=== PATIENT | male | born 1945 | race Caucasian/White ===

== ENCOUNTER 2018-11-01 19:06 | Inpatient (IN) | payer MEDICARE ==
--- NOTE | 2018-11-01 19:53 | ED ---
HPI Chest Pain - HPI Summary HPI Summary: Pt is a 73 y/o M presenting to the ED with a chief complaint of chest pain onset this morning that lasted about 3 hours. He took 2.5mg of clonazepam which calmed him down and he went to work and came home around 1800 and had another episode. Pt ate half a tuna fish sub that he ate very quickly. Pt has a hx of an IA over 5 years ago but he states he has episodes where he feels like he needs to burp but he cant. Upon burping, he usually feels better. Altogether, hes had 7.5 mg of clonazepam today. At its peak, the pain was ~7, but now it is a 4. Pt denies nausea, vomiting, sob, and diaphoresis. Pt reports the chest pain in the lower center of chest. - History of Current Complaint Chief Complaint: EDChestPainROMI Time Seen by Provider: 11/01/18 19:38 Hx Obtained From: Patient Onset/Duration: Started Hours Ago, Still Present Timing: Constant Initial Severity: Moderate Current Severity: Mild Pain Intensity: 7 Pain Scale Used: 0-10 Numeric Chest Pain Location: Diffuse Chest Pain Radiates: No Character: Other: - like something is stuck in his esophagus Aggravating Factor(s): Other: - eating Alleviating Factor(s): Nothing Associated Signs and Symptoms: Positive: Chest Pain. Negative: Diaphoresis, Nausea, Vomiting - Additional Pertinent History Primary Care Physician: [id number] - Allergy/Home Medications Allergies/Adverse Reactions: Allergies Allergy/AdvReac Type Severity Reaction Status Date / Time MS No Known Drug Allergy Allergy Unknown Verified 11/01/18 22:25 [No Known Drug Allergy] Reaction Details environmental Allergy Sneezing Uncoded 11/01/18 22:25 Home Medications: Home Medications Eliquis* 5 mg PO DAILY 11/01/18 [History Confirmed 11/01/18] Flecainide TAB(NF) 50 mg PO DAILY 11/01/18 [History Confirmed 11/01/18] clonazePAM TAB(*) 0.5 mg PO DAILY PRN 11/01/18 [History Confirmed 11/01/18] PMH/Surg Hx/FS Hx/Imm Hx Previously Healthy: No Endocrine/Hematology History: Denies: Hx Diabetes, Hx Systemic Lupus Erythematosus, Hx Thyroid Disease Cardiovascular History: Reports: Hx Angina - catheterization several years ago, no significant blockage, Hx Coronary Artery Disease, Hx Hypercholesterolemia, Hx Hypertension, Hx Myocardial Infarction, Other Cardiovascular Problems/ Disorders - DVT R arm Denies: Hx Congestive Heart Failure, Hx Valvular Heart Disease Respiratory History: Denies: Hx Asthma, Hx Chronic Obstructive Pulmonary Disease (COPD) GI History: Reports: Hx Gastroesophageal Reflux Disease, Other GI Disorders - neck ca, PEG tube Denies: Hx Ulcer History: Reports: Hx Renal Disease - abnormal gfr Denies: Hx Dialysis Musculoskeletal History: Denies: Hx Rheumatoid Arthritis Sensory History: Reports: Hx Contacts or Glasses Opthamlomology History: Reports: Hx Contacts or Glasses - Cancer History Cancer Type, 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 Infectious Disease History: No Infectious Disease History: Denies: Hx Clostridium Difficile, Hx Hepatitis, Hx Human Immunodeficiency Virus (HIV), Hx of Known/Suspected MRSA, Hx Shingles, Hx Tuberculosis, Hx Known/ Suspected VRE, Hx Known/Suspected VRSA, History Other Infectious Disease, Traveled Outside the [place] in Last 30 Days - Family History Known Family History: Negative: Renal Disease - Social History Alcohol Use: None Substance Use Type: Reports: None Smoking Status (MU): Never Smoked Tobacco Review of Systems Negative: Fever, Chills, Skin Diaphoresis Positive: Chest Pain Negative: Shortness Of Breath Negative: Vomiting, Diarrhea, Nausea All Other Systems Reviewed And Are Negative: Yes Physical Exam - Summary Physical Exam Summary: Appearance: Well-appearing, Well-nourished, lying in bed comfortably Skin: Warm, dry, no obvious rash Eyes: sclera anicteric, no conjunctival pallor ENT: mucous membranes moist, pharynx appears normal Neck: Supple, nontender Respiratory: Clear to auscultation, no signs of respiratory distress Cardiovascular: Normal S1, S2. No murmurs. Normal distal pulses in tibial and radial bilaterally. Abdomen: Soft, nontender, normal active bowel sounds present Musculoskeletal: Normal, Strength/ROM Intact Neurological: A&Ox3, awake and alert, mentation is normal, speech is fluent and appropriate Psychiatric: affect is normal, does not appear anxious or depressed Triage Information Reviewed: Yes Vital Signs On Initial Exam: Initial Vitals Temp Pulse Resp BP Pulse Ox 97.8 F 88 16 165/101 98 11/01/18 19:10 11/01/18 19:10 11/01/18 19:10 11/01/18 19:10 11/01/18 19:10 Vital Signs Reviewed: Yes Diagnostics - Vital Signs Vital Signs Temp Pulse Resp BP Pulse Ox 11/01/18 19:10 97.8 F 88 16 165/101 98 - Laboratory Result Diagrams: 11/01/18 19:57 11/01/18 21:55 Lab Statement: Any lab studies that have been ordered have been reviewed, and results considered in the medical decision making process. - Radiology Chest x-ray Radiology Interpretation Completed By: ED Physician Summary of Radiographic Findings: No acute disease. Nodule in R upper chest that appears to have been present on 2015 prior film. Pending official radiology report. - EKG 1918 Cardiac Rate: NL - 85bpm EKG Rhythm: Sinus Rhythm ST Segment: Normal Ectopy: None Summary of EKG Findings: LVH 1958 Cardiac Rate: NL - 80bpm EKG Rhythm: Sinus Rhythm ST Segment: Non-Specific Ectopy: None Summary of EKG Findings: LVH. Mild widening of QRS. No STEMI. Discharge - Sign-Out/Discharge Documenting (check all that apply): Patient Departure - Discharge Plan Condition: Stable Disposition: ADMITTED TO [facility] Referrals: Dean Jacobson MD [Primary Care Provider] - - Attestation Statements Document Initiated by Scribe: Yes Documenting Scribe: Hillary Miramontes Provider For Whom Scribe is Documenting (Include Credential): Jean Sigala MD. Scribe Attestation: Hillary Zafar, scribed for Jean Sigala MD. on 11/01/18 at 2313. Consult Consult: [id number] - Dr. Andersen will be the accepting physician for the patient.
[2018-11-01] MEDS ORDERED: Lidocaine 2% VISCOUS* 15 ML UDC PO ONE (19:57)
[2018-11-01] MEDS ORDERED: Al Hydrox/Mg Hydrox/Simet LIQ* 30 ML UDC PO ONE (19:57)
[2018-11-01] MEDS ORDERED: SIMETHICONE PO ONE (19:57)
[2018-11-01 20:39] LABS: ABS Basophils 0 10^3/ul (0-0.2); ABS Eosinophils 0.1 10^3/ul (0-0.6); ABS Lymphocytes 0.7 10^3/ul (1.0-4.8); ABS Monocytes 0.4 10^3/ul (0-0.8); ABS Nucleated RBC 0 10^3/ul; Eosinophil % 1.4 %; Hematocrit 41 % (42-52); Hemoglobin 13.9 g/dl (14.0-18.0); Lymphocyte % 14.1 %; Mean Corpuscular HGB Conc 34 g/dl (31-36); Mean Corpuscular Hemoglobin 31 pg (27-31); Mean Corpuscular Volume 90 fL (80-94); Mean Platelet Volume 8.5 fL (7.4-10.4); Nucleated Red Blood Cells % 0.1; Platelet Count 118 10^3/ul (150-450); Red Blood Count 4.56 10^6/ul (4.00-5.40); Red Cell Distribution Width 14 % (10.5-15); White Blood Count 5.3 10^3/ul (3.5-10.8)
[2018-11-01 20:58] LABS: Albumin 4.1 g/dL (3.2-5.2); Albumin/Globulin Ratio 1.7 (1-3); BUN/Creatinine Ratio 17.2 (8-20); Calcium 9.4 mg/dL (8.6-10.3); EGFR African American 63.2 (>60); EGFR Non-African American 52.3 (>60); Globulin 2.4 g/dL (2-4); Potassium 3.7 mmol/L (3.5-5.0); Total Bilirubin 0.6 mg/dL (0.2-1.0); Total Protein 6.5 g/dL (6.4-8.9)
[2018-11-01 21:05] LABS: Troponin I 0.19 ng/mL (<0.04)
[2018-11-01] MEDS ORDERED: Aspirin TAB* 325 MG PO ONE (21:10)
[2018-11-01] MEDS ORDERED: Morphine VIAL* 10 MG/ML 1 ML VIAL IV PRN (21:11)
[2018-11-01] MEDS ORDERED: Nitro 2% OINT* (Nitroglycerin) 1 INCH/PAK PAK TOPICAL ONE (21:12)
[2018-11-01] MEDS ORDERED: Heparin DRIP 25,000 UNITS(*) 25,000 UNITS/500 ML BAG IV SCH (21:30)
[2018-11-01] MEDS ORDERED: Heparin VIAL(*) 5000 UNITS/ML VIAL (FIVE THOUSAND) ONE (21:42)
[2018-11-01] MEDS ORDERED: Heparin DRIP 25,000 UNITS(*) 25,000 UNITS/500 ML BAG ONE (21:42)
[2018-11-01] MEDS ORDERED: Heparin VIAL(*) 5000 UNITS/ML VIAL (FIVE THOUSAND) IV SCH (22:00)
[2018-11-01 22:56] LABS: EGFR African American 69.1 (>60); EGFR Non-African American 57.1 (>60)
[2018-11-01] MEDS ORDERED: Acetaminophen TAB* 325 MG PO PRN (23:17)
[2018-11-01] MEDS ORDERED: clonazePAM TAB(*) 0.5 MG PO PRN (23:20)
[2018-11-01] MEDS ORDERED: NS 0.9% 1000 ML** 1,000 ML IV SCH (23:30)
[2018-11-02] MEDS ORDERED: Heparin DRIP 25,000 UNITS(*) 25,000 UNITS/500 ML BAG IV SCH
[2018-11-02] MEDS ORDERED: Heparin VIAL(*) 5000 UNITS/ML VIAL (FIVE THOUSAND) IV SCH (00:30)
--- NOTE | 2018-11-02 00:57 | HP ---
CC: Dean Jacobson MD; Orestes Moreno MD * HISTORY AND PHYSICAL: DATE OF ADMISSION: 11/01/18 TIME OF EVALUATION: 2300 PRIMARY CARE PHYSICIAN: Dean Jacobson MD PRODUCT APPLICATIONS ENGINEER: Orestes Moreno MD CHIEF COMPLAINT: Chest pain. HISTORY OF PRESENT ILLNESS: This is a 73-year-old male with a past medical history of CAD and hypertension and paroxysmal AFib, on anticoagulation, who presented to the emergency room after having 2 episodes of persistent chest pain. The patient states since his head and neck cancer, status post chemo and radiation in 2014, he has had issues with digestion where it feels that he needs to burp, but cannot. After taking small sips, it usually helps. This morning, he developed a similar epigastric chest pain. He took some sips of water and a Klonopin and his pain improved. Around 3:30 this afternoon, he ate half a tuna salad and about an hour later the pain returned. The sips of water did not help. He went home, he walked around and the symptoms persisted and he thought that he should go to the emergency room for further evaluation. He works at a [employer] and was outside walking around for most of the day. His furnace no longer works and he was using a space heater as it was very cold today as the temperature was in the single digits. The patient denies any nausea. No shortness of breath. No associated diaphoresis. Denies any recent medication changes. He had a stress test over a year ago that was unremarkable. He states he is slowly gaining weight back since his head and neck surgery. Otherwise, review of systems is negative. In the emergency room , the patient had labs and imaging. He was given simethicone, nitro paste and aspirin 325 mg and started on a heparin drip. Otherwise, remaining review of systems is negative. PAST MEDICAL HISTORY: 1. History of paroxysmal atrial fibrillation, on anticoagulation followed by Dr. Moreno. 2. History of nonobstructive coronary artery disease with an NSTEMI in 2010. 3. History of BPH. 4. Hyperlipidemia. 5. Hypertension. 6. History of head and neck cancer, status post chemo and radiation in 2014. 7. History of right axillary DVT. MEDICATIONS: 1. BuSpar 7.5 mg p.o. b.i.d. 2. Tamsulosin 0.4 mg q.h.s. 3. Bystolic 10 mg p.o. daily. 4. Nizatidine 150 mg p.o. b.i.d. 5. Eliquis 5 mg p.o. b.i.d. 6. Flecainide 100 mg p.o. b.i.d. ALLERGIES: No known drug allergies. FAMILY HISTORY: Mother at age 50 from an aneurysm. Father at age 80 from old age. SOCIAL HISTORY: He lives at home with his , who is his healthcare proxy. He owns a car dealership. No alcohol or illicit drug use or smoking. Code status is full code. REVIEW OF SYSTEMS: A 14-point review of systems as mentioned in the HPI, otherwise negative. PHYSICAL EXAMINATION GENERAL: No acute distress, resting comfortably. VITAL SIGNS: Temp is 97.8, pulse rate of 70, respiratory rate of 15, oxygen saturation is 96% on room air, blood pressure 111/72. HEENT: Head: Normocephalic. Pupils are equal and reactive. Anicteric. Oropharynx: Mucous membranes are moist. NECK: Supple. No lymphadenopathy. RESPIRATORY: Clear to auscultation. No wheezes, rhonchi, or rales. CARDIAC: Regular rate and rhythm. Soft systolic murmur heard throughout. ABDOMEN: Soft, nontender, nondistended. EXTREMITIES: No clubbing, cyanosis, or edema. +1 DPs. NEUROLOGIC: Alert and oriented x3. No gross focal neurologic deficits. LABORATORY DATA: White count 5.3, hemoglobin 13.9, hematocrit 41, platelets 118. Sodium 140, potassium 4.7, chloride 105, bicarb 28, BUN 7, creatinine 1.24 , glucose 159. Troponin initially 0.19, repeat is 0.69. RADIOGRAPHIC DATA: EKG shows normal sinus rhythm with a QTc of 488, some borderline ST changes. ASSESSMENT: This is a 73-year-old male with a past medical history of nonobstructive coronary artery disease, hypertension, paroxysmal atrial fibrillation on anticoagulation, presented to the emergency room with chest pain , found to have a positive troponin. 1. Chest pain. Assessment: This is concerning for a non-ST elevation myocardial infarction versus unstable angina. The patient is now with subtle 1/ 10 right-sided chest pain. I did speak with Dr. Wilder who discussed stopping the Eliquis for now and to place him on a heparin drip and that we need to discontinue his flecainide now that he has a positive troponin concerning for coronary artery disease, which is a contraindication. We will keep him n.p.o. We will contact Dr. Gan in the morning and we will continue him on a baby aspirin. We will check a lipid panel in the morning and continue his nebivolol and simvastatin. 2. Chronic medical problems. As mentioned, paroxysmal atrial fibrillation. He needs to go off the flecainide. We will defer to Cardiology for alternative management of his paroxysmal atrial fibrillation. He is in sinus currently. 3. Anxiety. Continue his BuSpar and Klonopin. 4. FEN. N.p.o. after midnight. We will place him on gentle IV fluids. 5. DVT prophylaxis: The patient scores moderate risk. He will be on a heparin drip. 6. Code Status: Full code. PATIENT TIME: Greater than 40 minutes spent doing the history and physical, more than half the time spent in direct patient contact. [id number]/[facility] #: [id number] [place]
[2018-11-02 04:38] LABS: ABS Basophils 0 10^3/ul (0-0.2); ABS Eosinophils 0.1 10^3/ul (0-0.6); ABS Lymphocytes 0.9 10^3/ul (1.0-4.8); ABS Monocytes 0.5 10^3/ul (0-0.8); ABS Neutrophils 3.3 10^3/ul (1.5-7.7); ABS Nucleated RBC 0 10^3/ul; Eosinophil % 1.2 %; Hematocrit 37 % (42-52); Hemoglobin 12.7 g/dl (14.0-18.0); Mean Corpuscular HGB Conc 35 g/dl (31-36); Mean Corpuscular Hemoglobin 31 pg (27-31); Mean Corpuscular Volume 89 fL (80-94); Mean Platelet Volume 7.9 fL (7.4-10.4); Nucleated Red Blood Cells % 0; Platelet Count 107 10^3/ul (150-450); Red Blood Count 4.14 10^6/ul (4.00-5.40); Red Cell Distribution Width 14 % (10.5-15); White Blood Count 4.8 10^3/ul (3.5-10.8)
[2018-11-02 04:54] LABS: Calcium 8.7 mg/dL (8.6-10.3); Magnesium 1.8 mg/dL (1.9-2.7); Potassium 3.9 mmol/L (3.5-5.0)
[2018-11-02 05:00] LABS: BUN/Creatinine Ratio 17.9 (8-20); EGFR African American 77.8 (>60); EGFR Non-African American 64.3 (>60); HDL Cholesterol 51.7 mg/dL
[2018-11-02 05:10] LABS: Troponin I 0.83 ng/mL (<0.04)
[2018-11-02] MEDS ORDERED: Magnesium Sulfate 2 GM IV* 2 GM/50 ML BAG IVPB ONE (08:12)
--- NOTE | 2018-11-02 08:36 | PN ---
Subjective Date of Service: 11/02/18 Interval History: Mr. Preston is feeling better today. He denies any pain since arrival to the floor. He reports that he has had intermittent chest pain for many years which he describes as feeling like a "gas bubble" though the pain he had yesterday afternoon did not resolve with sips of water like usual. He believes he has had 2 cardiac caths in the past. He reports that during his last cath, he was told he had an "age appropriate" occlusion. He denies SOB, N/V, diaphoresis. 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 He does understand the importance of hospitalization at this point and is agreeable to staying. Family History: Unchanged from Admission Social History: Unchanged from Admission Past Medical History: Unchanged from Admission Objective Active Medications: Acetaminophen (Tylenol Tab*) 650 mg PO Q4H PRN FEVER/PAIN Aspirin (Aspirin 81 Mg Chew Tab*) 81 mg PO DAILY SHERRIE Buspirone HCl (Buspar Tab*) 7.5 mg PO DAILY SHERRIE Clonazepam (Klonopin Tab(*)) 0.5 mg PO DAILY PRN ANXIETY Famotidine (Pepcid Tab*) 20 mg PO DAILY SHERRIE Heparin Sodium (Porcine) (Heparin Vial(*)) 0 units IV .PER PROTOCOL SHERRIE Sodium Chloride (Ns 0.9% 1000 Ml) 1,000 mls @ 75 mls/hr IV PER RATE SHERRIE Heparin Sodium/Dextrose (Heparin Drip 25,000 Units(*)) 25,000 units in 500 mls @ 0 mls/hr IV PER RATE SHERRIE; Protocol Magnesium Sulfate (Magnesium Sulfate 2 Gm Iv*) 2 gm in 50 mls @ 50 mls/hr IVPB ONCE ONE Morphine Sulfate (Morphine Vial*) 4 mg IV ED ONCE PRN PAIN - CHEST Nebivolol (Bystolic (Nf)) 10 mg PO DAILY SHERRIE Simvastatin (Zocor(Nf)) 10 mg PO 1700 SHERRIE Tamsulosin HCl (Flomax Cap*) 0.4 mg PO BEDTIME SHERRIE Vital Signs - 8 hr 11/02/18 11/02/18 11/02/18 03:17 03:25 07:00 Temperature 97.1 F Pulse Rate 56 60 75 Respiratory 17 Rate Blood Pressure 113/66 (mmHg) O2 Sat by Pulse 98 Oximetry Oxygen Devices in Use Now: None Appearance: Elderly male laying in bed in NAD Eyes: No Scleral Icterus Ears/Nose/Mouth/Throat: Mucous Membranes Moist Neck: NL Appearance and Movements; NL JVP, Trachea Midline Respiratory: Symmetrical Chest Expansion and Respiratory Effort, Clear to Auscultation Cardiovascular: NL Sounds; No Murmurs; No JVD, RRR Abdominal: NL Sounds; No Tenderness; No Distention Extremities: No Edema Skin: No Rash or Ulcers Neurological: Alert and Oriented x 3 Lines/Tubes/Other Access: Clean, Dry and Intact Peripheral IV Result Diagrams: 11/02/18 04:27 11/02/18 04:27 Assess/Plan/Problems-Billing Assessment: Mr. Preston is a 73 yo M with PMH of afib on anticoagulation, CAD with NSTEMI in 2010, HLD, head and neck cancer in remission, and DVT; who presented to the ED with c/o chest pain and was found to have elevated troponins with minimal ST changes on EKG, concerning for an NSTEMI. - Patient Problems (1) NSTEMI (non-ST elevated myocardial infarction) Code(s): I21.4 - NON-ST ELEVATION (NSTEMI) MYOCARDIAL INFARCTION Comment: - Chest pain on arrival, now resolved - Trops peaked at 0.88 - EKG shows minimal ST elevation - Appreciate Cardiology consult; plan for cath in the AM after 48hr off Eliquis - Continue aspirin, Plavix, atorvastatin, nitro paste; heparin gtt d/c'd (2) Paroxysmal atrial fibrillation Code(s): I48.0 - PAROXYSMAL ATRIAL FIBRILLATION Comment: - Currently in NSR - Has [employer] event monitor, placed in 2014 - Hold flecainide and Eliquis - Continue heparin gtt, nebivolol (3) Abdominal aortic aneurysm Code(s): I71.4 - ABDOMINAL AORTIC ANEURYSM, WITHOUT RUPTURE Comment: - US shows infrarenal aneurysm measuring 6 x 4.6 x 4.7cm with thrombus in the distal aorta - Cardiology following (4) Hyperlipidemia Code(s): E78.5 - HYPERLIPIDEMIA, UNSPECIFIED Comment: - Lipid panel shows good control - Continue simvastatin (5) Anxiety Code(s): F41.9 - ANXIETY DISORDER, UNSPECIFIED Comment: - Continue buspirone and clonazepam (6) GERD (gastroesophageal reflux disease) Code(s): K21.9 - GASTRO-ESOPHAGEAL REFLUX DISEASE WITHOUT ESOPHAGITIS Comment : - Continue famotidine (7) History of DVT (deep vein thrombosis) Code(s): Z86.718 - PERSONAL HISTORY OF OTHER VENOUS THROMBOSIS AND EMBOLISM Comment: - Right axillary - Continue heparin gtt; Eliquis on hold (8) History of head and neck cancer Code(s): Z85.89 - PERSONAL HISTORY OF MALIGNANT NEOPLASM OF ORGANS AND SYSTEMS Comment: - In remission, s/p chemo and radiation - Follows with Dr. Baird q6 months (9) BPH (benign prostatic hyperplasia) Code(s): N40.0 - BENIGN PROSTATIC HYPERPLASIA WITHOUT LOWER URINRY TRACT SYMP Comment: - Continue tamsulosin (10) DVT prophylaxis Comment: - Heparin gtt (11) Full code status Code(s): Z78.9 - OTHER SPECIFIED HEALTH STATUS Comment: Status and Disposition: Inpatient. Anticipate d/c home when medically stable. Attending: Wilian Churchill
[2018-11-02] MEDS ORDERED: Apixaban* 5 MG TAB PO SCH (09:00)
[2018-11-02] MEDS ORDERED: Flecainide TAB* 100 MG PO SCH (09:00)
[2018-11-02] MEDS ORDERED: Clopidogrel TAB* 300 MG PO ONE (09:23)
--- NOTE | 2018-11-02 09:34 | CONSULT ---
Subjective Date of Service: 11/02/18 Interval History: Admission Date: 11/01/18 Consult date: 11/02/2018 Provider: Hospitalist PMD: Dean Jacobson MD Bursar: Orestes Moreno MD CHIEF COMPLAINT: Chest pain Reason for consult: NSTEMI HISTORY OF PRESENT ILLNESS: Soren Preston is a 73-year-old man with a PMHx as below. He states for several years he feels like there is air trapped in his esophagus associated with chest discomfort that is relieved with burping. Yesterday the same thing happened except he felt like he could "not get it out" and the discomfort which was lower chest/epigastric region. This recurred and he [place] [facility] [place] ruled in for ACS. He is now pain free after medical treatment. He denies any bleeding , melena, transfusions, allergies or kidney disease. He denies any recent afib episodes when he just generalyy feels fatigued PAST MEDICAL HISTORY: 1. History of paroxysmal atrial fibrillation, with linq monitor, on eliquis and flecainide (last dose 11/01/2018 at around 12:00) 2. NSTEMI in 2010, hazy distal Lcx lesion, non-obstructive 50% om1 lesion, no PCI performed 3. History of BPH. 4. Hyperlipidemia. 5. Hypertension. 6. History of head and neck cancer, status post chemo and radiation in 2014. 7. History of right axillary DVT. ALLERGIES: No known drug allergies. FAMILY HISTORY: Mother at age 50 from an aneurysm. Father at age 80 from age related complications SOCIAL HISTORY: He lives at home with his , who is his healthcare proxy. He owns a car dealership. No alcohol or illicit drug use or smoking. Code status is full code. Medications Active Medications: Acetaminophen (Tylenol Tab*) 650 mg PO Q4H PRN PRN Reason: FEVER/PAIN Aspirin (Aspirin 81 Mg Chew Tab*) 81 mg PO DAILY [facility] Atorvastatin Calcium (Lipitor*) 80 mg PO 1700 [facility] Buspirone HCl (Buspar Tab*) 7.5 mg PO DAILY [facility] Clonazepam (Klonopin Tab(*)) 0.5 mg PO DAILY PRN PRN Reason: ANXIETY Clopidogrel Bisulfate (Plavix Tab*) 600 mg PO ONCE ONE Stop: 11/02/18 09:24 Clopidogrel Bisulfate (Plavix Tab*) 75 mg PO DAILY [facility] Famotidine (Pepcid Tab*) 20 mg PO DAILY [facility] Nebivolol (Bystolic (Nf)) 10 mg PO DAILY [facility] Nitroglycerin (Nitroglycerin 2% Oint*) 1 inch TOPICAL 0800,1400 [facility]; Protocol Tamsulosin HCl (Flomax Cap*) 0.4 mg PO BEDTIME [facility] Home Medications: Nizatidine 150 mg PO DAILY 07/28/13 [History Confirmed 11/01/18] Tamsulosin CAP* [Flomax CAP*] 0.4 mg PO DAILY 07/28/13 [History Confirmed ] Nebivolol (NF) [Bystolic (NF)] 10 mg PO DAILY 08/11/15 [History Confirmed ] Simvastatin TAB(NF) [Zocor(NF)] 10 mg PO 1700 04/12/16 [History Confirmed ] Multivitamin [Multivitamins] 1 cap PO DAILY 04/15/16 [History Confirmed 11/01/18 ] busPIRone TAB* [Buspar TAB*] 7.5 mg PO DAILY 03/04/17 [History Confirmed ] Eliquis* 5 mg PO DAILY 11/01/18 [History Confirmed 11/01/18] Flecainide TAB(NF) 100 mg po bid clonazePAM TAB(*) 0.5 mg PO DAILY PRN 11/01/18 [History Confirmed 11/01/18] Review of Systems - Measurements Intake and Output: Intake and Output Last 24 Hours 10/31/18 11/01/18 11/02/18 11/03/18 06:59 06:59 06:59 06:59 Intake Total 430 Balance 430 Weight 184 lb 9.6 oz Intake: IV Fluids 430 NS (0.9%) 430 Oral 0 - Review of Systems Constitutional Symptoms: Negative: Weakness, Fatigue, Fever, Night Sweats, Unexplained Falls Dermatology: Negative: Rash, Skin Lesions HEENT: Negative: Change in Hearing, Vertigo Eyes: Negative: Change in Vision, Double Vision Thyroid: Positive: Radiation Exposure Negative: Heat Intolerance, Sweatiness Pulmonary: Negative: Cough, Sputum, Hemoptysis, Wheezing, Respiratory Distress, Shortness of Breath, COPD, Asthma, Exercise Intolerance Cardiology: Positive: Chest Pain Negative: Shortness of Breath, Palpitations, Swelling of Ankles, Peripheral Vascular Dis, Edema, Faintness, Syncope, Claudication, Paroxysmal Nocturnal Dyspnea, Orthopnea Gastroenterology: Negative: Abdominal Pain, Nausea, Vomiting, Anorexia, Haematemesis, Melena Genital - Urinary: Negative: Dysuria, Hematuria Musculoskeletal: Negative: Joint Pain, Joint Stiffness Endocrinology: Negative: Obesity, Diabetes Hematologic/Lymphatic: Positive: Use of Anticoagulant Negative: Easy Brusing, Use of Antiplatelet Drugs Neurology: Negative: Headaches, Migraines, Change in Coordination, Change in Memory, Change in Speech, Change in Sphincter Function, Hx of Stroke\\TIA, Hx Seizures Psychiatry: Positive: Anxiety Negative: Unusual Anxiety, Suicidal Ideation Allergic/Immunologic: Negative: Hx Anaphylaxis, Hx Angioedema, Hx HIV, Immunocompromise Review of Systems Statement: All other review of systems negative, unless stated above. Objective Vital Signs: Temp Pulse Resp BP Pulse Ox 97.3 F 76 20 126/74 98 11/02/18 07:15 11/02/18 07:15 11/02/18 08:00 11/02/18 07:15 11/02/18 07:15 Oxygen Devices in Use Now: None Appearance: nad, pleasant Ears/Nose/Mouth/Throat: Clear Oropharnyx, Mucous Membranes Moist Neck: NL Appearance and Movements; NL JVP, Trachea Midline Respiratory: Symmetrical Chest Expansion and Respiratory Effort, Clear to Auscultation Cardiovascular: NL Sounds; No Murmurs; No JVD, RRR, No Edema Abdominal: NL Sounds; No Tenderness; No Distention Extremities: No Edema Skin: No Rash or Ulcers Neurological: Alert and Oriented x 3 Laboratory Results: 11/02/18 04:27 11/02/18 04:27 APTT 111.1 seconds (26.0-36.3) H* 11/02/18 04:27 Total Bilirubin 0.60 mg/dL (0.2-1.0) 11/01/18 19:57 AST 16 U/L (13-39) 11/01/18 19:57 ALT 11 U/L (7-52) 11/01/18 19:57 Alkaline Phosphatase 64 U/L (34-104) 11/01/18 19:57 Total Protein 6.5 g/dL (6.4-8.9) 11/01/18 19:57 Albumin 4.1 g/dL (3.2-5.2) 11/01/18 19:57 Globulin 2.4 g/dL (2-4) 11/01/18 19:57 Albumin/Globulin Ratio 1.7 (1-3) 11/01/18 19:57 Triglycerides 46 mg/dL 11/02/18 04:27 Cholesterol 129 mg/dL 11/02/18 04:27 LDL Cholesterol 68 mg/dL 11/02/18 04:27 HDL Cholesterol 51.7 mg/dL 11/02/18 04:27 11/01/18 11/01/18 11/02/18 19:57 22:07 00:46 Troponin I 0.19 H* 0.69 H* 0.88 H* 11/02/18 04:27 Troponin I 0.83 H* Diagnostic Imaging: Cardiac Testing: Stress Test - (03/14/2017) Exercised for 7:48 min No chest pain No EKG changes Normal perfusion Normal LV function EF 61% Echocardiogram - (05/06/2016) Mildly reduced Prem function EF 45% Septal asynchrony Mild AR and MR Echocardiogram - (08/13/2015) Mildly reduced LV function EF 45% Septal asynchrony Thickened Aortic valve Mild AR and MR Trace TR Stress Test - (11/24/2006) Normal cardiac chemical stress test. No evidence of ischemia. Fixed inferior defect most consistent with inferior attenutation artifact. Normal LV function. Stress Test - (07/22/2009) No inducible ischemia by ECG and echo criteria. Echocardiogram - (07/14/2011) Normal LV function, EF 62%, Mild AR and MR, Asc Aorta 3.9 cm Holter Monitor - (01/08/2014) NSR No A. Fib No Symptoms Slow VT at 102 bpm 7 beats Cardiac Procedures: Pacemaker Implantation - (12/31/2014) CT coronary angiogram. - (03/05/2008) Normal LV function, EF 55%, Mild plaquing of prox LAD and RCA. Cardiac Catheterization - (06/10/2011) LV: Normal function, EF 60%, Asc. Aorta 5 cm. LM: normal. LAD: normal. LCX: mid Hazy area. OM2: ostial 50%, RCA : prox 20% Implantable Loop Event Monitor - (12/30/2014) [employer] EKG Data: EKG today and yesterday: NSR, IVCD, LAD, minimal ST elevation aVL isolated with reciprocal ST depression inferior leads unchanged on repeat new since 07/2018 Assessment/Plan 1. NSTEMI - Pain free, no arrhythmia, CHF or hemodynamic instability 2. Paroxysmal atrial fibrillation - On flecainide and eliquis [employer] 3. Thoracic aortic aneurysm 4. Thrombocytopenia - mild, stable - d/c heparin gtt, await eliquis washout x 48 hours - Continue aspirin 81 mg po daily - Given plavix 600 mg po x 1 and then 75 mg po daily (Ordered) - Change statin to atorvastatin 80 mg po daily (ordered) - Final anti-platelet/anti-coagulant regimen pending +/- revascularization - Continue topical nitrates - Continue bystolic 10 mg po daily - d/c flecainide - Check echo (Ordered) - Screen for AAA with US (ordered) - Interrogate linq monitor (will arrange) - Cardiac catheterization with intent for revascularization indicated and recommended. Risks, benefits and alternatives discussed and patient wishes to proceed. Will arrange for tomorrow (Tuesday11/03/2018) after 48 hour of eliquis discontinuation. Discussed with Dr. Mcmahan Thank you for allowing me to participate in the cardiovascular care of this patient. Please do not hesitate to contact me with questions or concerns.
[2018-11-02] MEDS ORDERED: Nitro 2% OINT* (Nitroglycerin) 1 INCH/PAK PAK ONE (09:51)
[2018-11-02] MEDS: Famotidine TAB* 20 MG PO SCH (10:31)
[2018-11-02] MEDS: Aspirin 81 mg CHEW TAB* 81 MG TAB.CHEW PO SCH (10:31)
[2018-11-02] MEDS: busPIRone TAB* 5 MG PO SCH (10:31)
[2018-11-02] MEDS: PTO:Nebivolol (NF) 10 MG TAB PO SCH (10:32)
--- NOTE | 2018-11-02 12:40 | ECHO ---
Patient: NOE YING [facility] Rec#: [id number] : 1945 Date: 11/02/2018 Age: 73y Height: 182.88 cm / 72.0 in Weight: 83.46 kg / 183.9 lbs Sex: M BSA: 2.06 Room#: 433 Admit Date#: 11/01/2018 Type: Inpatient Referring: Juan David Gan DO Reading: Juan David Gan DO Serology Teacher: Luz Marina Mott RDCS,RDMS CC: Dean Jacobson MD Transthoracic Echocardiogram Indication: ID BP: 127/74 HR: 88 Rhythm: NSR Findings History: CAD, NSTEMI, DVT, AFIB, HTN, HLD, head and neck cancer, chemotherapy Technical Comments: The study quality is good. Left Ventricle: The left ventricular chamber size is normal. Mild concentric left ventricular hypertrophy is observed. There is a prominent septal knuckle. There are multiple regional wall motion abnormalities. There is severely decreased left ventricular systolic function.at 30% The assessment of diastolic function is non-diagnostic. The mid anterolateral, and apical lateral wall segments are hypokinetic (score 2). The mid anteroseptal, mid anterior, mid inferolateral, mid inferior, mid inferoseptal, apical septal, and apical anterior wall segments are akinetic (score 3). Overall wallmotion score index is 2.78 Left Atrium: The left atrial chamber size is normal. Right Ventricle: The right ventricular chamber size and systolic function are within normal limits. Right Atrium: The right atrial cavity size is normal. Aortic Valve: The aortic valve is trileaflet. The aortic valve leaflets are mildly thickened. There is aortic annular calcification.that is mild There is mild aortic regurgitation. There is no evidence of aortic stenosis. Mitral Valve: The mitral valve leaflets are mildly thickened. There is a trace of mitral regurgitation. There is no evidence of mitral stenosis. Tricuspid Valve: The tricuspid valve leaflets are normal. There is trace tricuspid regurgitation. No pulmonary hypertension is noted. Pulmonic Valve: The pulmonic valve appears normal. There is mild pulmonic regurgitation. Pericardium: There is no significant pericardial effusion. Aorta: There is moderate dilatation of the ascending aorta. There is no dilatation of the aortic arch. There is mild dilatation of the aortic root. Pulmonary Artery: The main pulmonary artery is not well visualized. Venous: The inferior vena cava appears normal in size. There is a greater than 50% respiratory change in the inferior vena cava dimension. Conclusions The left ventricular chamber size is normal. Mild concentric left ventricular hypertrophy is observed. There is a prominent septal knuckle. There are multiple regional wall motion abnormalities. There is severely decreased left ventricular systolic function.at 30% The left atrial chamber size is normal. The right ventricular chamber size and systolic function are within normal limits. The aortic valve is trileaflet. There is mild dilatation of the aortic root. There is moderate dilatation of the ascending aorta at 4.2 cm Compared to prior study from 07/2018, decrease in LVEF and wall motion abnormalities newly noted, ascending aneurysm stable. Measurements Name Value Normal Range RVIDd (AP) 2D 2.5 cm (0.9 - 2.6) RVDdMajor (2D) 2.6 cm (2.2 - 4.4) RAd ISD 4CH 4.3 cm (3.4 - 4.9) RA (A4C)W 3.8 cm (2.9 - 4.6) IVSd (2D) 1.7 cm (0.6 - 1) LVPWd (2D) 1.2 cm (0.6 - 1) LVIDd (2D) 4.5 cm (3.6 - 5.4) LVIDs (2D) 2.8 cm - LV FS (2D) 38 % (25 - 45) Aortic Annulus 1.8 cm (1.4 - 2.6) Ao root diameter (2D) 3.8 cm (2.1 - 3.5) Ascending Ao 4.2 cm (2.1 - 3.4) Aortic arch 2.7 cm (1.8 - 3.4) LA dimension (AP) 2D 4 cm (2.3 - 3.8) LAd ISD 4CH 4.5 cm (2.9 - 5.3) LA ISD 4CH W 4.8 cm (2.5 - 4.5) Name Value Normal Range LA ESV SP 4CH (A/L) 60.66 ml - LA ESV SP 2CH (A/L) 66.31 ml - LA ESV BP (A/L) 69.5 ml - LA ESV BP (A/L) index 34 ml/m2 - LA ESV SP 4CH (MOD) 58.42 ml - LA ESV SP 2CH (MOD) 61.12 ml - Name Value Normal Range MV E-wave Vmax 0.9 m/sec - MV deceleration time 134 msec - LV lateral e' Vmax 0.06 m/sec - LV E:e' lateral ratio 14 ratio - Name Value Normal Range AV Vmax 1 m/sec - AV peak gradient 4 mmHg - LVOT Vmax 0.8 m/sec - LVOT peak gradient 2.6 mmHg - AR PHT 401.44 msec - AR peak gradient 35.84 mmHg - YOAN Vmax 0.5 m/sec - Name Value Normal Range TR Vmax 2.3 m/sec - TR peak gradient 21 mmHg - RAP 3 mmHg - RVSP 24 mmHg - IVC diameter 1.3 cm - Name Value Normal Range PV Vmax 0.8 m/sec - PV peak gradient 2 mmHg - Wallmotion BAS Not Seen BA Not Seen BAL Not Seen BRENDON Not Seen BI Not Seen BIS Not Seen MAS Akinetic MA Akinetic MAL Hypokinetic MIL Akinetic ID Akinetic MIS Akinetic Akinetic AA Akinetic AL Hypokinetic AI Not Seen APEX Hypokinetic
[2018-11-02] MEDS: Nitro 2% OINT* (Nitroglycerin) 1 INCH/PAK PAK TOPICAL SCH (14:28)
[2018-11-02] MEDS ORDERED: CMCS:Simvastatin TAB(NF) 10 MG TAB PO SCH (17:00)
[2018-11-02] MEDS ORDERED: diPHENhydraMINE PO* 25 MG PO PRN (17:08)
[2018-11-02] MEDS ORDERED: Diazepam TAB(*) 5 MG PO PRN (17:08)
[2018-11-02] MEDS: Atorvastatin* 80 MG TAB PO SCH (17:13)
[2018-11-02] MEDS: Tamsulosin CAP* 0.4 MG PO SCH (21:06)
[2018-11-03 05:25] LABS: Hematocrit 39 % (42-52); Hemoglobin 13.2 g/dl (14.0-18.0); Mean Corpuscular HGB Conc 34 g/dl (31-36); Mean Corpuscular Hemoglobin 31 pg (27-31); Mean Corpuscular Volume 90 fL (80-94); Mean Platelet Volume 7.6 fL (7.4-10.4); Platelet Count 120 10^3/ul (150-450); Red Blood Count 4.32 10^6/ul (4.00-5.40); Red Cell Distribution Width 14 % (10.5-15); White Blood Count 4.1 10^3/ul (3.5-10.8)
[2018-11-03 05:42] LABS: BUN/Creatinine Ratio 16.4 (8-20); Calcium 8.7 mg/dL (8.6-10.3); EGFR African American 70.5 (>60); EGFR Non-African American 58.2 (>60); Potassium 4.2 mmol/L (3.5-5.0)
[2018-11-03] MEDS: Nitro 2% OINT* (Nitroglycerin) 1 INCH/PAK PAK TOPICAL SCH (08:10)
[2018-11-03] MEDS: Aspirin 81 mg CHEW TAB* 81 MG TAB.CHEW PO SCH (08:11)
[2018-11-03] MEDS: Famotidine TAB* 20 MG PO SCH (08:11)
[2018-11-03] MEDS: busPIRone TAB* 5 MG PO SCH (08:11)
[2018-11-03] MEDS: PTO:Nebivolol (NF) 10 MG TAB PO SCH (08:12)
[2018-11-03] MEDS: NS 0.9% 1000 ML** 1,000 ML IV SCH ×2 (08:19→20:53)
--- NOTE | 2018-11-03 08:57 | PN ---
Subjective Date of Service: 11/03/18 Interval History: Mr. Preston is feeling well this morning. He has been up ambulating to the bathroom without difficulty. Denies CP or SOB. He is slightly concerned about being off his flicainide as he has felt some episodes of afib this morning. He reports an intermittent fluttering feeling in his chest. He denies N/V, diaphoresis. Family History: Unchanged from Admission Social History: Unchanged from Admission Past Medical History: Unchanged from Admission Objective Active Medications: Acetaminophen (Tylenol Tab*) 650 mg PO Q4H PRN FEVER/PAIN Aspirin (Aspirin 81 Mg Chew Tab*) 81 mg PO DAILY [facility] Atorvastatin Calcium (Lipitor*) 80 mg PO 1700 [facility] Buspirone HCl (Buspar Tab*) 7.5 mg PO DAILY [facility] Clonazepam (Klonopin Tab(*)) 0.5 mg PO DAILY PRN ANXIETY Clopidogrel Bisulfate (Plavix Tab*) 75 mg PO DAILY [facility] Diazepam (Valium Tab(*)) 2.5 mg PO ONCE PRN Diphenhydramine HCl (Benadryl Po*) 25 mg PO ONCE PRN Famotidine (Pepcid Tab*) 20 mg PO DAILY [facility] Sodium Chloride (Ns 0.9% 1000 Ml) 1,000 mls @ 100 mls/hr IV .per rate [facility] Nebivolol (Bystolic (Nf)) 10 mg PO DAILY [facility] Nitroglycerin (Nitroglycerin 2% Oint*) 1 inch TOPICAL 0800,1400 [facility]; Protocol Tamsulosin HCl (Flomax Cap*) 0.4 mg PO BEDTIME [facility] Vital Signs - 8 hr 11/03/18 03:29 Temperature 97.1 F Pulse Rate 65 Respiratory 17 Rate Blood Pressure 112/65 (mmHg) O2 Sat by Pulse 97 Oximetry Oxygen Devices in Use Now: None Appearance: Elderly male laying in bed in NAD Eyes: No Scleral Icterus Ears/Nose/Mouth/Throat: Mucous Membranes Moist Neck: NL Appearance and Movements; NL JVP, Trachea Midline Respiratory: Symmetrical Chest Expansion and Respiratory Effort, Clear to Auscultation Cardiovascular: NL Sounds; No Murmurs; No JVD, RRR Abdominal: NL Sounds; No Tenderness; No Distention Extremities: No Edema Skin: No Rash or Ulcers Neurological: Alert and Oriented x 3 Lines/Tubes/Other Access: Clean, Dry and Intact Peripheral IV Nutrition: Taking PO's Result Diagrams: 11/03/18 05:18 11/03/18 05:18 Assess/Plan/Problems-Billing Assessment: Mr. Preston is a 73 yo M with PMH of afib on anticoagulation, CAD with NSTEMI in 2010, HLD, head and neck cancer in remission, and DVT; who presented to the ED with c/o chest pain and was found to have elevated troponins with minimal ST changes on EKG, concerning for an NSTEMI. - Patient Problems (1) NSTEMI (non-ST elevated myocardial infarction) Code(s): I21.4 - NON-ST ELEVATION (NSTEMI) MYOCARDIAL INFARCTION Comment: - Chest pain on arrival, now resolved - Trops peaked at 0.88 - EKG shows minimal ST elevation - Appreciate Cardiology consult; plan for cath today after 48hr off Eliquis - Continue aspirin, Plavix, atorvastatin, nitro paste (2) Paroxysmal atrial fibrillation Code(s): I48.0 - PAROXYSMAL ATRIAL FIBRILLATION Comment: - Intermittent episodes of rate controlled afib overnight, currently in NSR - Has Alkymos event monitor placed in 2014 - Hold flecainide and Eliquis per Cardiology - Continue nebivolol (3) Abdominal aortic aneurysm Code(s): I71.4 - ABDOMINAL AORTIC ANEURYSM, WITHOUT RUPTURE Comment: - US shows infrarenal aneurysm measuring 6 x 4.6 x 4.7cm with thrombus in the distal aorta - Asymptomatic - Cardiology following (4) Hyperlipidemia Code(s): E78.5 - HYPERLIPIDEMIA, UNSPECIFIED Comment: - Lipid panel shows good control - Continue simvastatin (5) Anxiety Code(s): F41.9 - ANXIETY DISORDER, UNSPECIFIED Comment: - Continue buspirone and clonazepam (6) GERD (gastroesophageal reflux disease) Code(s): K21.9 - GASTRO-ESOPHAGEAL REFLUX DISEASE WITHOUT ESOPHAGITIS Comment : - Continue famotidine (7) History of DVT (deep vein thrombosis) Code(s): Z86.718 - PERSONAL HISTORY OF OTHER VENOUS THROMBOSIS AND EMBOLISM Comment: - Right axillary - Eliquis on hold; will resume anticoagulation when cleared by Cardiology (8) CKD (chronic kidney disease) stage 3, GFR 30-59 ml/min Code(s): N18.3 - CHRONIC KIDNEY DISEASE, STAGE 3 (MODERATE) Comment: - Creatinine at baseline (9) History of head and neck cancer Code(s): Z85.89 - PERSONAL HISTORY OF MALIGNANT NEOPLASM OF ORGANS AND SYSTEMS Comment: - In remission, s/p chemo and radiation - Follows with Dr. Baird q6 months (10) BPH (benign prostatic hyperplasia) Code(s): N40.0 - BENIGN PROSTATIC HYPERPLASIA WITHOUT LOWER URINRY TRACT SYMP Comment: - Continue tamsulosin (11) DVT prophylaxis Comment: - SCDs (12) Full code status Code(s): Z78.9 - OTHER SPECIFIED HEALTH STATUS Comment: Status and Disposition: Inpatient. Cardiac cath today. Anticipate d/c home when medically stable. Attending: Pat Hamilton
[2018-11-03] MEDS ORDERED: Clopidogrel TAB* 75 MG PO SCH (09:00)
[2018-11-03] MEDS ORDERED: Heparin 2 UNITS/ML IVPREMIX* 2,000 ML IV ONE (10:35)
[2018-11-03] MEDS ORDERED: Lidocaine 1% INJ* 10 MG/ML 30 ML SDV ONE ×2 (10:36→10:48)
[2018-11-03] MEDS ORDERED: Iodixanol 320 (CONTRAST) 100 ML SDV ONE (10:36)
[2018-11-03] MEDS ORDERED: VERAPAMIL 2.5 MG/ML 2 ML VIAL ** 5 mg/2 ml ONE (10:48)
[2018-11-03] MEDS ORDERED: fentaNYL* 50 MCG/ML 2 ML VIAL (100 MCG VIAL) ONE (10:48)
[2018-11-03] MEDS ORDERED: Midazolam* 1 MG/ML 10 ML VIAL (10 MG) ONE (10:48)
[2018-11-03] MEDS ORDERED: Heparin(*) 1000 UNIT/ML 10 ML VIAL CATH LAB IV ONE (10:48)
[2018-11-03] MEDS ORDERED: nitroGLYCERIN DRIP* 25,000 MCG/250 ML BTL ONE (10:48)
[2018-11-03] MEDS ORDERED: Amiodarone IV VIAL* 3 ML ONE (11:13)
[2018-11-03] MEDS ORDERED: Magnesium Sulfate 1 GM IV* 1 GM/100 ML BAG IV ONE (11:29)
[2018-11-03] MEDS ORDERED: NS 0.9% 1000 ML** 1,000 ML IV SCH (11:30)
--- NOTE | 2018-11-03 15:35 | CATH ---
CC: Dr. Dean Jacobson; Dr. Orestes Moreno, [facility] CARDIAC CATHETERIZATION REPORT: DATE OF PROCEDURE: 11/03/18 INDICATION FOR THE PROCEDURE: Asked by Dr. Juan David Gan, the primary salvationist seeing the patient in the hospital to perform diagnostic coronary arteriography in light severe left ventricular systolic dysfunction to rule out the presence of diffuse coronary artery disease with markedly reduced EF. PROCEDURE: Coronary arteriography. CONSENT: The patient was interviewed and examined on the floor of the hospital where the risks and benefits were explained to him and his . He understood them and wished to proceed. APPROACH UTILIZED: On the floor of the hospital, the right radial artery was assessed under ultrasound and found to be to be acceptable for an approach and as such this was the approach utilized. PRE-CARDIAC CATHETERIZATION LABORATORY RESULTS: Hemoglobin and hematocrit of 13.2 and 39 with a platelet count of 120,000. BUN and creatinine of 20 and 1.22 , sodium 141, potassium 4.2, chloride 110, bicarb 28. EQUIPMENT UTILIZED: 1. Right radial sheath - a 6-Salvadorean Glidesheath. 2. Diagnostic coronary catheters - A 5-Salvadorean TIG4 curved coronary catheter for the right coronary artery, a 5-Salvadorean FL4.5 curved catheter for the left coronary artery. 3. Diagnostic guidewire - a 260 length Morales curved guidewire, a 145 cm length Wholey wire to negotiate the subclavian artery area. 4. Closure device was a radial artery band. MEDICATIONS GIVEN DURING THE PROCEDURE: The patient received a radial artery cocktail including 3000 units of heparin, 300 mcg of nitroglycerin, and 3 mg of verapamil. The patient had already received on the floor of the hospital 81 mg of aspirin, 25 mg of Benadryl, clopidogrel 75 mg, and Valium 2.5 mg; all orally. In the earthmoving labourer, the patient did receive a bolus of 150 mg of amiodarone as he had gone into the atrial fibrillation during the procedure. He spontaneously converted back to sinus rhythm just as the bolus as given. RESULTS: CORONARY ARTERIOGRAPHY: A. Right coronary artery - a nondominant vessel supplying the PDA and multiple small posterior left ventricular benches. There was mild luminal irregularity seen in the proximal and mid segment with degree of maximal luminal reduction noted to in the range of 20% to 25% in the proximal area and 35% to 40% in the mid portion just prior to turning on to the inferior surface of the heart. B. Left coronary artery: 1. Left main - the distal segment of left main had a mild 15% narrowing noted. 2. Left anterior descending artery - the left anterior descending artery had mild luminal irregularities seen in the proximal portion with maximal degree of narrowing of 10% to 15%. The mid portion of the vessel had mild 20% narrowing. The artery supplied 2 diagonal branches with mild luminal irregularities seen. No significant obstruction was noted. 3. Circumflex artery - a nondominant vessel supplying a high first obtuse marginal branch followed by a moderate-sized second obtuse marginal branch, a small-caliber third obtuse marginal branch, and a moderate fourth and fifth obtuse marginal branch. The ostium of the second obtuse marginal branch had a 45% to 50% obstruction noted. The distal circumflex artery last obtuse marginal branch had a narrowing of 40% to 45% in its ostial area. OVERALL ASSESSMENT: [id number] coronary artery disease as described above , clearly not significant enough to explain global severe left ventricular wall motion abnormality. Coronary artery disease does not appear to be the cause of the significant degree of LV systolic dysfunction. Other considerations including takotsubo syndrome should be considered. 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 Further management for his intermittent atrial fibrillation and overall left ventricular systolic function will be under the guidance of Dr. Juan David Gan(primary salvationist currently caring for the patient) while in hospital. The results of the catheterization were shared with both Dr. Gan and WAYNE Jerome. [id number]/[facility] #: [id number] [facility]STCHESTERJuliana
--- NOTE | 2018-11-03 15:38 | PN ---
Subjective Date of Service: 11/03/18 Interval History: f/u takotsubo cardiomyopathy, PAFib Patient denies any current CP or dyspnea Had Pafib during angiogram broke with IV amiodarone tele currently NSR Medications Active Medications: Acetaminophen (Tylenol Tab*) 650 mg PO Q4H PRN PRN Reason: FEVER/PAIN Amiodarone HCl (Cordarone Tab*) 400 mg PO BID [facility] Apixaban (Eliquis*) 5 mg PO BID [facility] Atorvastatin Calcium (Lipitor*) 80 mg PO 1700 [facility] Last Admin: 11/02/18 17:13 Dose: 80 mg Buspirone HCl (Buspar Tab*) 7.5 mg PO DAILY [facility] Last Admin: 11/03/18 08:11 Dose: 7.5 mg Clonazepam (Klonopin Tab(*)) 0.5 mg PO DAILY PRN PRN Reason: ANXIETY Famotidine (Pepcid Tab*) 20 mg PO DAILY [facility] Last Admin: 11/03/18 08:11 Dose: 20 mg Sodium Chloride (Ns 0.9% 1000 Ml) 1,000 mls @ 100 mls/hr IV .per rate [facility] Last Admin: 11/03/18 08:19 Dose: 100 mls/hr Nebivolol (Bystolic (Nf)) 10 mg PO DAILY [facility] Last Admin: 11/03/18 08:12 Dose: 10 mg Tamsulosin HCl (Flomax Cap*) 0.4 mg PO BEDTIME [facility] Last Admin: 11/02/18 21:06 Dose: 0.4 mg Objective Vital Signs: Temp Pulse Resp BP Pulse Ox 98.3 F 77 19 104/54 94 11/03/18 07:14 11/03/18 14:00 11/03/18 13:27 11/03/18 13:57 11/03/18 14:00 Oxygen Devices in Use Now: None Appearance: nad, pleasant Ears/Nose/Mouth/Throat: Clear Oropharnyx, Mucous Membranes Moist Neck: NL Appearance and Movements; NL JVP, Trachea Midline Respiratory: Symmetrical Chest Expansion and Respiratory Effort, Clear to Auscultation Cardiovascular: NL Sounds; No Murmurs; No JVD, RRR, No Edema Abdominal: NL Sounds; No Tenderness; No Distention Extremities: No Edema, - - cath access site not examined Skin: No Rash or Ulcers Neurological: Alert and Oriented x 3 Laboratory Results: 11/03/18 05:18 11/03/18 05:18 APTT 111.1 seconds (26.0-36.3) H* 11/02/18 04:27 Total Bilirubin 0.60 mg/dL (0.2-1.0) 11/01/18 19:57 AST 16 U/L (13-39) 11/01/18 19:57 ALT 11 U/L (7-52) 11/01/18 19:57 Alkaline Phosphatase 64 U/L (34-104) 11/01/18 19:57 Total Protein 6.5 g/dL (6.4-8.9) 11/01/18 19:57 Albumin 4.1 g/dL (3.2-5.2) 11/01/18 19:57 Globulin 2.4 g/dL (2-4) 11/01/18 19:57 Albumin/Globulin Ratio 1.7 (1-3) 11/01/18 19:57 Triglycerides 46 mg/dL 11/02/18 04:27 Cholesterol 129 mg/dL 11/02/18 04:27 LDL Cholesterol 68 mg/dL 11/02/18 04:27 HDL Cholesterol 51.7 mg/dL 11/02/18 04:27 11/01/18 11/01/18 11/02/18 19:57 22:07 00:46 Troponin I 0.19 H* 0.69 H* 0.88 H* 11/02/18 04:27 Troponin I 0.83 H* Diagnostic Imaging: Cardiac Testing: Stress Test - (03/14/2017) Exercised for 7:48 min No chest pain No EKG changes Normal perfusion Normal LV function EF 61% Echocardiogram - (05/06/2016) Mildly reduced Prem function EF 45% Septal asynchrony Mild AR and MR Echocardiogram - (08/13/2015) Mildly reduced LV function EF 45% Septal asynchrony Thickened Aortic valve Mild AR and MR Trace TR Stress Test - (11/24/2006) Normal cardiac chemical stress test. No evidence of ischemia. Fixed inferior defect most consistent with inferior attenutation artifact. Normal LV function. Stress Test - (07/22/2009) No inducible ischemia by ECG and echo criteria. Echocardiogram - (07/14/2011) Normal LV function, EF 62%, Mild AR and MR, Asc Aorta 3.9 cm Holter Monitor - (01/08/2014) NSR No A. Fib No Symptoms Slow VT at 102 bpm 7 beats Cardiac Procedures: Pacemaker Implantation - (12/31/2014) CT coronary angiogram. - (03/05/2008) Normal LV function, EF 55%, Mild plaquing of prox LAD and RCA. Cardiac Catheterization - (06/10/2011) LV: Normal function, EF 60%, Asc. Aorta 5 cm. LM: normal. LAD: normal. LCX: mid Hazy area. OM2: ostial 50%, RCA : prox 20% Implantable Loop Event Monitor - (12/30/2014) [employer] LINQ Echo 11/01/2018: LVEF 30%, basal contraction preserved, normal RV size and function, no significant valvular abnormalities noted, 4.2 cm ascending aorta Cardiac catheterization 11/03/2018: Non-obstructive CAD Abdomen US: 4.6 x 4.7 cm AAA with thrombus distally EKG Data: EKG admisison: NSR, IVCD, LAD, minimal ST elevation aVL isolated with reciprocal ST depression inferior leads unchanged on repeat new since 07/2018 ekg 11/03/2018: NSR, LAD, diffuse twi (biphasic v2/v3) with long QTc interval suggestive of myocardial ischemia Assessment/Plan 1. Takotsubo cardiomyopathy - Pain free, no CHF or hemodynamic instability - LVEF 30% 2. Paroxysmal atrial fibrillation - On flecainide and eliquis [employer] - Linq monitor battery depleted 3. Thoracic aortic aneurysm 4. AAA - Discussed with and patient, will arrange outpatient f/u with Dr. Ferrari for further evaluation - d/c aspirin and plavix (ordered) - restart eliquis 5 mg po bi tonight (ordered) - continue statin - d/c topical nitrates (ordered) - Continue bystolic 10 mg po daily - Would start ARB tomorrow low dose if otherwise stable - d/c flecainide for now. Patient is very concerned about going back into atrial fibrillation. Given EKG today and presenting history will start amiodarone for now, risks and benefits discussed - Will plan on limited echo Tuesday11/05/2018 Thank you for allowing me to participate in the cardiovascular care of this patient. Please do not hesitate to contact me with questions or concerns.
[2018-11-03] MEDS: Atorvastatin* 80 MG TAB PO SCH (16:19)
[2018-11-03] MEDS: Amiodarone TAB* 400 MG PO SCH ×2 (16:19→20:54)
[2018-11-03] MEDS: Apixaban* 5 MG TAB PO SCH (20:54)
[2018-11-03] MEDS: Tamsulosin CAP* 0.4 MG PO SCH (20:54)
[2018-11-03] MEDS ORDERED: Amiodarone TAB* 400 MG PO SCH (21:00)
[2018-11-04 05:35] LABS: Albumin 3.4 g/dL (3.2-5.2); Albumin/Globulin Ratio 1.7 (1-3); BUN/Creatinine Ratio 12.9 (8-20); Calcium 8.7 mg/dL (8.6-10.3); EGFR African American 69.1 (>60); EGFR Non-African American 57.1 (>60); Magnesium 1.7 mg/dL (1.9-2.7); Potassium 4.1 mmol/L (3.5-5.0); Total Protein 5.4 g/dL (6.4-8.9)
[2018-11-04 06:20] LABS: TSH (Thyroid Stimulating Horm) 3.15 mcIU/mL (0.34-5.60)
[2018-11-04] MEDS ORDERED: Magnesium Sulfate 2 GM IV* 2 GM/50 ML BAG ONE (08:08)
[2018-11-04] MEDS: Famotidine TAB* 20 MG PO SCH (08:19)
[2018-11-04] MEDS: PTO:Nebivolol (NF) 10 MG TAB PO SCH (08:19)
[2018-11-04] MEDS: Apixaban* 5 MG TAB PO SCH ×2 (08:19→21:19)
[2018-11-04] MEDS: busPIRone TAB* 5 MG PO SCH (08:20)
[2018-11-04] MEDS: Amiodarone TAB* 400 MG PO SCH ×2 (08:21→21:19)
[2018-11-04] MEDS: Losartan TAB* 25 MG ONE ×2 (08:21→08:22)
[2018-11-04] MEDS: Losartan TAB* 25 MG PO SCH (08:23)
[2018-11-04] MEDS ORDERED: Magnesium Sulfate 2 GM IV* 2 GM/50 ML BAG IVPB ONE (08:30)
--- NOTE | 2018-11-04 08:37 | PN ---
Subjective Date of Service: 11/04/18 Interval History: f/u takotsubo cardiomyopathy, PAFib Patient denies any current CP or dyspnea Bigeminy last evening Now SR, no further Afib Medications Active Medications: Acetaminophen (Tylenol Tab*) 650 mg PO Q4H PRN PRN Reason: FEVER/PAIN Amiodarone HCl (Cordarone Tab*) 400 mg PO BID [facility] Last Admin: 11/04/18 08:21 Dose: 400 mg Apixaban (Eliquis*) 5 mg PO BID [facility] Last Admin: 11/04/18 08:19 Dose: 5 mg Atorvastatin Calcium (Lipitor*) 80 mg PO 1700 [facility] Last Admin: 11/03/18 16:19 Dose: 80 mg Buspirone HCl (Buspar Tab*) 7.5 mg PO DAILY [facility] Last Admin: 11/04/18 08:20 Dose: 7.5 mg Clonazepam (Klonopin Tab(*)) 0.5 mg PO DAILY PRN PRN Reason: ANXIETY Famotidine (Pepcid Tab*) 20 mg PO DAILY [facility] Last Admin: 11/04/18 08:19 Dose: 20 mg Magnesium Sulfate (Magnesium Sulfate 2 Gm Iv*) 2 gm in 50 mls @ 50 mls/hr IVPB ONCE ONE Stop: 11/04/18 09:29 Last Admin: 11/04/18 08:23 Dose: Not Given Losartan Potassium (Cozaar Tab*) 25 mg PO DAILY [facility] Last Admin: 11/04/18 08:23 Dose: Not Given Nebivolol (Bystolic (Nf)) 10 mg PO DAILY [facility] Last Admin: 11/04/18 08:19 Dose: 10 mg Tamsulosin HCl (Flomax Cap*) 0.4 mg PO BEDTIME [facility] Last Admin: 11/03/18 20:54 Dose: 0.4 mg Objective Vital Signs: Temp Pulse Resp BP Pulse Ox 97.0 F 62 18 137/63 98 11/04/18 07:15 11/04/18 07:15 11/04/18 07:32 11/04/18 07:15 11/04/18 07:15 Oxygen Devices in Use Now: None Appearance: nad, pleasant Ears/Nose/Mouth/Throat: Clear Oropharnyx, Mucous Membranes Moist Neck: NL Appearance and Movements; NL JVP, Trachea Midline Respiratory: Symmetrical Chest Expansion and Respiratory Effort, Clear to Auscultation Cardiovascular: NL Sounds; No Murmurs; No JVD, RRR, No Edema Abdominal: NL Sounds; No Tenderness; No Distention Extremities: No Edema, - - cath access site not examined Skin: No Rash or Ulcers Neurological: Alert and Oriented x 3 Laboratory Results: 11/03/18 05:18 11/04/18 04:55 APTT 111.1 seconds (26.0-36.3) H* 11/02/18 04:27 Total Bilirubin 1.00 mg/dL (0.2-1.0) 11/04/18 04:55 AST 13 U/L (13-39) 11/04/18 04:55 ALT 9 U/L (7-52) 11/04/18 04:55 Alkaline Phosphatase 58 U/L (34-104) 11/04/18 04:55 Total Protein 5.4 g/dL (6.4-8.9) L 11/04/18 04:55 Albumin 3.4 g/dL (3.2-5.2) 11/04/18 04:55 Globulin 2.0 g/dL (2-4) 11/04/18 04:55 Albumin/Globulin Ratio 1.7 (1-3) 11/04/18 04:55 Triglycerides 46 mg/dL 11/02/18 04:27 Cholesterol 129 mg/dL 11/02/18 04:27 LDL Cholesterol 68 mg/dL 11/02/18 04:27 HDL Cholesterol 51.7 mg/dL 11/02/18 04:27 TSH 3.15 mcIU/mL (0.34-5.60) 11/04/18 04:55 11/01/18 11/01/18 11/02/18 19:57 22:07 00:46 Troponin I 0.19 H* 0.69 H* 0.88 H* 11/02/18 04:27 Troponin I 0.83 H* mg this am 1.7 Diagnostic Imaging: Cardiac Testing: Stress Test - (03/14/2017) Exercised for 7:48 min No chest pain No EKG changes Normal perfusion Normal LV function EF 61% Echocardiogram - (05/06/2016) Mildly reduced Prem function EF 45% Septal asynchrony Mild AR and MR Echocardiogram - (08/13/2015) Mildly reduced LV function EF 45% Septal asynchrony Thickened Aortic valve Mild AR and MR Trace TR Stress Test - (11/24/2006) Normal cardiac chemical stress test. No evidence of ischemia. Fixed inferior defect most consistent with inferior attenutation artifact. Normal LV function. Stress Test - (07/22/2009) No inducible ischemia by ECG and echo criteria. Echocardiogram - (07/14/2011) Normal LV function, EF 62%, Mild AR and MR, Asc Aorta 3.9 cm Holter Monitor - (01/08/2014) NSR No A. Fib No Symptoms Slow VT at 102 bpm 7 beats Cardiac Procedures: Pacemaker Implantation - (12/31/2014) CT coronary angiogram. - (03/05/2008) Normal LV function, EF 55%, Mild plaquing of prox LAD and RCA. Cardiac Catheterization - (06/10/2011) LV: Normal function, EF 60%, Asc. Aorta 5 cm. LM: normal. LAD: normal. LCX: mid Hazy area. OM2: ostial 50%, RCA : prox 20% Implantable Loop Event Monitor - (12/30/2014) [employer] LINQ Echo 11/01/2018: LVEF 30%, basal contraction preserved, normal RV size and function, no significant valvular abnormalities noted, 4.2 cm ascending aorta Cardiac catheterization 11/03/2018: Non-obstructive CAD Abdomen US: 4.6 x 4.7 cm AAA with thrombus distally EKG Data: EKG admisison: NSR, IVCD, LAD, minimal ST elevation aVL isolated with reciprocal ST depression inferior leads unchanged on repeat new since 07/2018 ekg 11/03/2018: NSR, LAD, diffuse twi (biphasic v2/v3) with long QTc interval suggestive of myocardial ischemia Assessment/Plan 1. Takotsubo cardiomyopathy - Pain free, no CHF or hemodynamic instability - LVEF 30% 2. Paroxysmal atrial fibrillation - On flecainide and eliquis [employer] - Linq monitor battery depleted 3. Thoracic aortic aneurysm 4. AAA - Discussed with and patient, will arrange outpatient f/u with Dr. Ferrari for further evaluation - Continue eliquis 5 mg po bid - continue statin, can change back to [employer] at discharge - Continue amiodarone 400 mg po bid, will change to 200 mg po qd at discharge - D/c flecainide - Start losartan 25 mg po daily (ordered) - Continue bystolic 10 mg po daily - Replace Mg IV (ordered) - Will plan on limited echo tomorrow Tuesday11/05/2018 Thank you for allowing me to participate in the cardiovascular care of this patient. Please do not hesitate to contact me with questions or concerns.
--- NOTE | 2018-11-04 10:04 | PN ---
Subjective Date of Service: 11/04/18 Interval History: Mr. Preston is feeling well today. He offers no complaints. He is anxious for his IV to finish so that he can ambulate around the unit. He reports a significant amount of stress lately r/t work. He is thinking about cutting back at work d/t the effects on his health. He denies further CP. No SOB, N/V. Aware of plan for echo tomorrow and d/c afterward. Family History: Unchanged from Admission Social History: Unchanged from Admission Past Medical History: Unchanged from Admission Objective Active Medications: Acetaminophen (Tylenol Tab*) 650 mg PO Q4H PRN FEVER/PAIN Amiodarone HCl (Cordarone Tab*) 400 mg PO BID [facility] Apixaban (Eliquis*) 5 mg PO BID [facility] Atorvastatin Calcium (Lipitor*) 80 mg PO 1700 [facility] Buspirone HCl (Buspar Tab*) 7.5 mg PO DAILY [facility] Clonazepam (Klonopin Tab(*)) 0.5 mg PO DAILY [facility]N [facility]ET[facility] Famotidine (Pepcid Tab*) 20 mg PO DAILY [facility] Losartan Potassium (Cozaar Tab*) 25 mg PO DAILY [facility] Nebivolol (Bystolic (Nf)) 10 mg PO DAILY [facility] Tamsulosin HCl (Flomax Cap*) 0.4 mg PO BEDTIME [facility] Vital Signs - 8 hr 11/04/18 11/04/18 11/04/18 03:37 07:15 07:32 Temperature 97.2 F 97.0 F Pulse Rate 63 62 Respiratory 16 16 18 Rate Blood Pressure 109/59 137/63 (mmHg) O2 Sat by Pulse 97 98 Oximetry Oxygen Devices in Use Now: None Appearance: Elderly male laying in bed in NAD Eyes: No Scleral Icterus Ears/Nose/Mouth/Throat: Mucous Membranes Moist Neck: NL Appearance and Movements; NL JVP, Trachea Midline Respiratory: Symmetrical Chest Expansion and Respiratory Effort, Clear to Auscultation Cardiovascular: NL Sounds; No Murmurs; No JVD, RRR Abdominal: NL Sounds; No Tenderness; No Distention Extremities: No Edema Skin: No Rash or Ulcers Neurological: Alert and Oriented x 3 Lines/Tubes/Other Access: Clean, Dry and Intact Peripheral IV Nutrition: Taking PO's Result Diagrams: 11/03/18 05:18 11/04/18 04:55 Assess/Plan/Problems-Billing Assessment: Mr. Preston is a 73 yo M with PMH of afib on anticoagulation, CAD with NSTEMI in 2010, HLD, head and neck cancer in remission, and DVT; who presented to the ED with c/o chest pain and was found to have elevated troponins with minimal ST changes on EKG, concerning for an NSTEMI. - Patient Problems (1) Takotsubo cardiomyopathy Code(s): I51.81 - TAKOTSUBO SYNDROME Comment: - Chest pain on arrival, now resolved - Trops peaked at 0.88; EKG shows minimal ST elevation - Appreciate Cardiology consult; cardiac cath yesterday unremarkable for obstruction - Echo shows EF 30% - Plan for limited echo tomorrow and discharge afterward (2) Paroxysmal atrial fibrillation Code(s): I48.0 - PAROXYSMAL ATRIAL FIBRILLATION Comment: - Intermittent episodes of rate controlled afib yesterday, currently in NSR - Has [employer] event monitor placed in 2014, battery depleted - Continue nebivolol, Eliquis, amiodarone (3) Hypertension Code(s): I10 - ESSENTIAL (PRIMARY) HYPERTENSION Comment: - Start losartan per Cardiology (4) Abdominal aortic aneurysm Code(s): I71.4 - ABDOMINAL AORTIC ANEURYSM, WITHOUT RUPTURE Comment: - US shows infrarenal aneurysm measuring 6 x 4.6 x 4.7cm with thrombus in the distal aorta - Asymptomatic - Cardiology following and will need outpt f/u (5) Hyperlipidemia Code(s): E78.5 - HYPERLIPIDEMIA, UNSPECIFIED Comment: - Lipid panel shows good control - Continue simvastatin (6) Anxiety Code(s): F41.9 - ANXIETY DISORDER, UNSPECIFIED Comment: - Continue buspirone and clonazepam (7) GERD (gastroesophageal reflux disease) Code(s): K21.9 - GASTRO-ESOPHAGEAL REFLUX DISEASE WITHOUT ESOPHAGITIS Comment : - Continue famotidine (8) History of DVT (deep vein thrombosis) Code(s): Z86.718 - PERSONAL HISTORY OF OTHER VENOUS THROMBOSIS AND EMBOLISM Comment: - Right axillary - Continue Eliquis (9) CKD (chronic kidney disease) stage 3, GFR 30-59 ml/min Code(s): N18.3 - CHRONIC KIDNEY DISEASE, STAGE 3 (MODERATE) Comment: - Creatinine at baseline (10) History of head and neck cancer Code(s): Z85.89 - PERSONAL HISTORY OF MALIGNANT NEOPLASM OF ORGANS AND SYSTEMS Comment: - In remission, s/p chemo and radiation - Follows with Dr. Baird q6 months (11) BPH (benign prostatic hyperplasia) Code(s): N40.0 - BENIGN PROSTATIC HYPERPLASIA WITHOUT LOWER URINRY TRACT SYMP Comment: - Continue tamsulosin (12) DVT prophylaxis Comment: - SCDs (13) Full code status Code(s): Z78.9 - OTHER SPECIFIED HEALTH STATUS Comment: Status and Disposition: Inpatient. Anticipate d/c home tomorrow after echo. Attending: Pari Reynolds
[2018-11-04] MEDS: Magnesium Oxide TAB* 400 MG PO SCH (10:54)
[2018-11-04] MEDS: Atorvastatin* 80 MG TAB PO SCH (16:27)
[2018-11-04] MEDS: Tamsulosin CAP* 0.4 MG PO SCH (21:19)
[2018-11-05 07:59] VITALS: BP 137/60
[2018-11-05] MEDS: Famotidine TAB* 20 MG PO SCH (09:04)
[2018-11-05] MEDS: Magnesium Oxide TAB* 400 MG PO SCH (09:04)
[2018-11-05] MEDS: Losartan TAB* 25 MG PO SCH (09:04)
[2018-11-05] MEDS: Amiodarone TAB* 400 MG PO SCH (09:04)
[2018-11-05] MEDS: busPIRone TAB* 5 MG PO SCH (09:04)
[2018-11-05] MEDS: Apixaban* 5 MG TAB PO SCH (09:05)
[2018-11-05] MEDS: PTO:Nebivolol (NF) 10 MG TAB PO SCH (09:05)
[2018-11-05] MEDS ORDERED: Magnesium Sulfate IV* 3 GM in NS 0.9% 100 ML* 100 ML IVPB ONE (09:09)
--- NOTE | 2018-11-05 09:09 | ECHO ---
Patient: NOE YING Rec#: [id number] : 1945 Date: 11/05/2018 Age: 73y Height: 183 cm / 72.0 in Weight: 84 kg / 185.1 lbs Sex: M BSA: 2.06 Room#: 433 Admit Date#: 11/01/2018 Type: Inpatient Referring: Juan David Gan DO Reading: Juan David Gan DO Endbander: Luz Marina Mott RD,RDMS Transthoracic Echocardiogram Indication: PR, Cardiomyopathy BP: 130/56 HR: 69 Rhythm: NSR Findings History: Takotsubo's, CAD, NSTEMI, DVT, AFIB, HTN, HLD Technical Comments: The study quality is good. Left Ventricle: The left ventricular chamber size is normal. Mild concentric left ventricular hypertrophy is observed. Left ventricular systolic function is at the lower limits of normal. The estimated ejection fraction is 50-55%. Conclusions The left ventricular chamber size is normal. Mild concentric left ventricular hypertrophy is observed. Left ventricular systolic function is at the lower limits of normal. The estimated ejection fraction is 50-55% with very mild hypokinesis of the apical segments Limited study, compared to prior from 11/01/2018, the LVEF has improved from 30%
--- NOTE | 2018-11-05 09:31 | PN ---
Subjective Date of Service: 11/05/18 Interval History: f/u takotsubo cardiomyopathy, PAFib Patient denies any current CP or dyspnea LVEF recovered to 50% tele nsr, no arrhythmias Medications Active Medications: Acetaminophen (Tylenol Tab*) 650 mg PO Q4H PRN PRN Reason: FEVER/PAIN Amiodarone HCl (Cordarone Tab*) 400 mg PO BID [facility] Last Admin: 11/05/18 09:04 Dose: 400 mg Apixaban (Eliquis*) 5 mg PO BID [facility] Last Admin: 11/05/18 09:05 Dose: 5 mg Atorvastatin Calcium (Lipitor*) 80 mg PO 1700 [facility] Last Admin: 11/04/18 16:27 Dose: 80 mg Buspirone HCl (Buspar Tab*) 7.5 mg PO DAILY [facility] Last Admin: 11/05/18 09:04 Dose: 7.5 mg Clonazepam (Klonopin Tab(*)) 0.5 mg PO DAILY PRN PRN Reason: ANXIETY Famotidine (Pepcid Tab*) 20 mg PO DAILY [facility] Last Admin: 11/05/18 09:04 Dose: 20 mg Losartan Potassium (Cozaar Tab*) 25 mg PO DAILY [facility] Last Admin: 11/05/18 09:04 Dose: 25 mg Magnesium Oxide (Magox 400 Tab*) 400 mg PO DAILY [facility] Last Admin: 11/05/18 09:04 Dose: 400 mg Nebivolol (Bystolic (Nf)) 10 mg PO DAILY [facility] Last Admin: 11/05/18 09:05 Dose: 10 mg Tamsulosin HCl (Flomax Cap*) 0.4 mg PO BEDTIME [facility] Last Admin: 11/04/18 21:19 Dose: 0.4 mg Objective Vital Signs: Temp Pulse Resp BP Pulse Ox 97.8 F 62 20 137/60 97 11/05/18 07:25 11/05/18 07:25 11/05/18 07:58 11/05/18 07:25 11/05/18 07:25 Oxygen Devices in Use Now: None Appearance: nad, pleasant Ears/Nose/Mouth/Throat: Clear Oropharnyx, Mucous Membranes Moist Neck: NL Appearance and Movements; NL JVP, Trachea Midline Respiratory: Symmetrical Chest Expansion and Respiratory Effort, Clear to Auscultation Cardiovascular: NL Sounds; No Murmurs; No JVD, RRR, No Edema Abdominal: NL Sounds; No Tenderness; No Distention Extremities: No Edema, - - right arm ecchymosis, cath site intact, radial pulse felt distally, hand warm and well perfused Skin: No Rash or Ulcers Neurological: Alert and Oriented x 3 Laboratory Results: 11/03/18 05:18 11/04/18 04:55 APTT 111.1 seconds (26.0-36.3) H* 11/02/18 04:27 Total Bilirubin 1.00 mg/dL (0.2-1.0) 11/04/18 04:55 AST 13 U/L (13-39) 11/04/18 04:55 ALT 9 U/L (7-52) 11/04/18 04:55 Alkaline Phosphatase 58 U/L (34-104) 11/04/18 04:55 Total Protein 5.4 g/dL (6.4-8.9) L 11/04/18 04:55 Albumin 3.4 g/dL (3.2-5.2) 11/04/18 04:55 Globulin 2.0 g/dL (2-4) 11/04/18 04:55 Albumin/Globulin Ratio 1.7 (1-3) 11/04/18 04:55 Triglycerides 46 mg/dL 11/02/18 04:27 Cholesterol 129 mg/dL 11/02/18 04:27 LDL Cholesterol 68 mg/dL 11/02/18 04:27 HDL Cholesterol 51.7 mg/dL 11/02/18 04:27 TSH 3.15 mcIU/mL (0.34-5.60) 11/04/18 04:55 11/01/18 11/01/18 11/02/18 19:57 22:07 00:46 Troponin I 0.19 H* 0.69 H* 0.88 H* 11/02/18 04:27 Troponin I 0.83 H* mg 2/2 was 1.7 Diagnostic Imaging: Cardiac Testing: Stress Test - (03/14/2017) Exercised for 7:48 min No chest pain No EKG changes Normal perfusion Normal LV function EF 61% Echocardiogram - (05/06/2016) Mildly reduced Prem function EF 45% Septal asynchrony Mild AR and MR Echocardiogram - (08/13/2015) Mildly reduced LV function EF 45% Septal asynchrony Thickened Aortic valve Mild AR and MR Trace TR Stress Test - (11/24/2006) Normal cardiac chemical stress test. No evidence of ischemia. Fixed inferior defect most consistent with inferior attenutation artifact. Normal LV function. Stress Test - (07/22/2009) No inducible ischemia by ECG and echo criteria. Echocardiogram - (07/14/2011) Normal LV function, EF 62%, Mild AR and MR, Asc Aorta 3.9 cm Holter Monitor - (01/08/2014) NSR No A. Fib No Symptoms Slow VT at 102 bpm 7 beats Cardiac Procedures: Pacemaker Implantation - (12/31/2014) CT coronary angiogram. - (03/05/2008) Normal LV function, EF 55%, Mild plaquing of prox LAD and RCA. Cardiac Catheterization - (06/10/2011) LV: Normal function, EF 60%, Asc. Aorta 5 cm. LM: normal. LAD: normal. LCX: mid Hazy area. OM2: ostial 50%, RCA : prox 20% Implantable Loop Event Monitor - (12/30/2014) [employer] LINQ Echo 11/01/2018: LVEF 30%, basal contraction preserved, normal RV size and function, no significant valvular abnormalities noted, 4.2 cm ascending aorta Cardiac catheterization 11/03/2018: Non-obstructive CAD Abdomen US: 4.6 x 4.7 cm AAA with thrombus distally Echo 11/05/2018 limited: LVEF 50% with subtle apical segment hypokinesis EKG Data: EKG admisison: NSR, IVCD, LAD, minimal ST elevation aVL isolated with reciprocal ST depression inferior leads unchanged on repeat new since 07/2018 ekg 11/03/2018: NSR, LAD, diffuse twi (biphasic v2/v3) with long QTc interval suggestive of myocardial ischemia EKG this AM NSr, LAD, diffuse twi with long qtc Assessment/Plan 1. Takotsubo cardiomyopathy - LVEF has recovered from 30 to 50%, remaining abnormal ekg and subtle hypokinesis of apical segments 2. Paroxysmal atrial fibrillation - On flecainide and eliquis [employer] - Linq monitor battery depleted 3. Thoracic aortic aneurysm 4. AAA - Discussed with and patient, will arrange outpatient f/u with Dr. Ferrari for further evaluation - Continue eliquis 5 mg po bid - continue statin, can change back to [employer] at discharge - Continue amiodarone, change to 200 mg po daily at discharge for now - D/c flecainide - Continue losartan 25 mg po daily - Continue bystolic 10 mg po daily - Continue magnesium supplementation - Patient will need to follow up with Dr. Moreno after discharge for further evaluation and management Thank you for allowing me to participate in the cardiovascular care of this patient. Please do not hesitate to contact me with questions or concerns.
--- NOTE | 2018-11-05 22:50 | DS ---
CC: Dr. Dean Jacobson; Dr. Ariel Baird; Dr. Soren Childers; Dr. Orestes Moreno; Dr. Jamar Mcmahan * DISCHARGE SUMMARY: DATE OF ADMISSION: 11/01/18 DATE OF DISCHARGE: 11/05/18 PRIMARY CARE PROVIDER: Dr. Dean Jacobson. ONCOLOGIST: Dr. Ariel Baird. ENT: Dr. Soren Childers. EXPERIMENTAL [employer] MECH[employer]IC: Dr. Orestes Moreno. INSPECTOR MATERIAL DISPOSITION: Dr. Jamar Mcmahan. ATTENDING PHYSICIAN: Dr. Reynolds * (dictated by Amberly Jerome NP). PRIMARY DIAGNOSES: 1. Takotsubo cardiomyopathy. 2. Abdominal aortic aneurysm. SECONDARY DIAGNOSES: 1. Paroxysmal atrial fibrillation. 2. Hypertension. 3. Hyperlipidemia. 4. Anxiety. 5. Gastroesophageal reflux disease. 6. History of deep venous thrombosis. 7. Chronic kidney disease stage 3. 8. History of head and neck cancer. 9. Benign prostatic hypertrophy. STUDIES WHILE IN THE HOSPITAL: 1. EKG on 11/01/18 shows normal sinus rhythm with a rate of 85, QTc 488, minimal ST changes. 2. Chest x-ray on 11/01/18 reads as no evidence for acute disease. 3. EKG on 11/01/18 shows normal sinus rhythm with a rate of 80, QTc 476, minimal ST changes. 4. EKG on 11/02/18 shows normal sinus rhythm with a rate of 69, QTc 490, minimal ST elevation in aVL, V2, and V3. 5. Transthoracic echocardiogram on 11/02/18 reads as the left ventricular chamber size is normal. Mild concentric left ventricular hypertrophy is observed. There is a prominent septal knuckle. There are multiple regional wall motion abnormalities. There is severely decreased left ventricular systolic function at 30%. The left atrial chamber size is normal. The right ventricular chamber size and systolic function are within normal limits. The aortic valve is trileaflet. There is mild dilatation of the aortic root. There is moderate dilatation of the ascending aorta at 4.2 cm. Compared to the prior study from July 2018, decrease in LVEF and wall motion abnormalities newly noted, ascending aneurysm stable. 6. Aortic ultrasound on 11/02/18 reads as infrarenal abdominal aortic aneurysm measuring 6.0 cm in length x 4.6 cm AP x 4.7 cm in width with thrombus in the distal abdominal aorta. 7. EKG on 11/03/18 shows normal sinus rhythm with a rate of 69, QTc 544, diffuse inverted T-wave, minimal ST changes. 8. EKG on 11/04/18 shows normal sinus rhythm with a rate of 68, QTc 518, diffusely inverted T-waves. 9. EKG on 11/05/18 shows normal sinus rhythm with a rate of 66, QTc 540, diffusely inverted T-waves. 10. Transthoracic echocardiogram on 11/05/18 reads as the left ventricular chamber size is normal, mild concentric left ventricular hypertrophy is observed. Left ventricular systolic function is at the lower limits of normal. The estimated ejection fraction is 50% to 55% with very mild hypokinesis of the apical segments. Limited study compared to prior study from 11/01/18, the LVEF has improved from 30%. HISTORY OF PRESENT ILLNESS AND HOSPITAL COURSE: Mr. Preston is a 73-year-old male with past medical history of CAD with an NSTEMI in 2010, paroxysmal atrial fibrillation, and hypertension, who presented to the emergency room on 11/01/18 with complaints of chest pain. Please the history and physical by Dr. Andersen for a complete summary of the events leading up to this hospitalization. In short, the patient notes that he typically has short periods of chest pain when it feels he needs to burp. These typically resolve. In the afternoon on the day of admission, the patient reported eating a sandwich. The pain developed and did not resolve. He was concerned and presented to the emergency room. In the emergency room, he was given simethicone, nitro paste, aspirin, and started on a heparin drip. He was noted to have a troponin of 0.19. The rest of his labs were essentially unremarkable. He had imaging as noted above. He was admitted by the hospitalist service for concern of NSTEMI. The patient had serial troponins and EKGs and his trops peaked at 0.88. His chest pain had resolved on arrival to the emergency room and did not recur. The patient was taken off his Eliquis and was seen in consultation by Cardiology. Cardiology planned to perform a cardiac catheterization after a 48- hour washout for the Eliquis. The patient was maintained on nitro paste and a heparin drip. Cardiology attempted to interrogate his LINQ monitor, though it was discovered that the battery was depleted. The patient was taken to the lab asst on 11/03/[address] Mcmahan noted that the patient had mild- to-moderate coronary artery disease, though not significant enough to explain global severe left ventricular wall motion abnormality. There were no critical lesions noted. The patient was again seen by Dr. Gan from Cardiology, and at that point, it was determined that the patient's symptoms were secondary to Takotsubo cardiomyopathy. I will note that the patient had been taken off his flecainide on arrival due to contraindications, and after the cardiac cath, was started on amiodarone as the patient was noted to have some short episodes of rate controlled atrial fibrillation while here in the hospital when he was off an antiarrhythmic. Dr. Gan felt as though the patient should have a repeat limited echo to reassess his ejection fraction. The patient had this repeat echo on 11/05/18, results are noted above. I did speak with Dr. Gan today, who advised that the patient is stable for discharge from a cardiac standpoint. He did recommend medication changes including prescribing amiodarone at discharge, stopping the flecainide, and starting losartan and magnesium supplementation. The patient reports feeling well today. He has been up ambulating in the hallways and has not had any further episodes of chest pain while in the hospital. He denies any shortness of breath, nausea, or diaphoresis. He does note that he has had significant stressors recently related to work. 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 The patient is in understanding of his diagnosis and is anxious to return home. Mr. Preston is stable for discharge today. Vital signs are as follows: Temp 97.8, heart rate 62, respiratory rate 16, oxygen saturation 97% on room air, blood pressure 137/60. DISCHARGE MEDICATIONS: New medications: 1. Amiodarone 200 mg p.o. daily. 2. Magnesium oxide 400 mg p.o. daily. 3. Losartan 25 mg p.o. daily. Continued medications: 1. Buspirone 7.5 mg p.o. daily. 2. Clonazepam 0.5 mg p.o. daily p.r.n. anxiety. 3. Eliquis 5 mg p.o. b.i.d. 4. Multivitamin 1 tab p.o. daily. 5. Bystolic 10 mg p.o. daily. 6. Nizatidine 150 mg p.o. daily. 7. Simvastatin 10 mg p.o. at bedtime. 8. Tamsulosin 0.4 mg p.o. daily. Discontinued medication: 1. Flecainide. DISCHARGE PLAN: Mr. Preston will be discharged home. Activity will be as tolerated. The patient has been given post-procedure instructions for his cardiac catheterization including monitoring of his right radial access site. Diet should be heart healthy. Medications are noted above. The patient has been taken off his flecainide and has been started on amiodarone for an antiarrhythmic. He has also been started on losartan for additional blood pressure management. He has been advised to take a magnesium supplement daily as his magnesium has been slightly low while here in the hospital. The patient will need to follow up with his PCP in 4 to 7 days. He will need to follow up with Dr. Moreno in 1 to 2 weeks. I will note that I sent in only 2 weeks' worth of amiodarone per the recommendation by Dr. Gan as he wants to ensure that the patient follows up in a timely fashion. Dr. Gan additionally will arrange outpatient followup with Dr. Ferrari for further evaluation of his AAA. He should follow up with Dr. Baird and Dr. Childers as needed on his usual schedule. He has been instructed to return to the emergency room or nearest hospital for any worsening of symptoms, shortness of breath, lightheadedness, dizziness, chest discomfort, high fevers, chills, night sweats , loss of consciousness, or any other worrisome signs or symptoms. This is a summarized report of a complex medical history and hospital stay. For further details, please see the entire medical record. TIME SPENT: Approximately 45 minutes were spent on this discharge. AMBERLY JEROME NP [id number]/[facility] #: [id number] [place]
== END 2018-11-05 12:30 | disposition home or self-care (01) | DRG 287 ==
LOC: ED 19:06 → MEDTELE 23:17
PROVIDERS: ADMIT Pediatrics; ATTEND Internal Medicine
PROC: B211YZZ Fluoroscopy of Multiple Coronary Arteries using Other Contrast (ICD-10-PCS; 2018-11-03)
PROC: 4A023N7 Measurement of Cardiac Sampling and Pressure, Left Heart, Percutaneous Approach (ICD-10-PCS; principal; 2018-11-03 10:00)
DX: I13.10 Hypertensive heart and chronic kidney disease without heart failure, with stage 1 through stage 4 chronic kidney disease, or unspecified chronic kidney disease (principal); I71.2 Thoracic aortic aneurysm, without rupture; I71.4 Abdominal aortic aneurysm, without rupture; I48.0 Paroxysmal atrial fibrillation; E78.5 Hyperlipidemia, unspecified; D69.6 Thrombocytopenia, unspecified; N18.3 Chronic kidney disease, stage 3 (moderate); F41.9 Anxiety disorder, unspecified; I25.10 Atherosclerotic heart disease of native coronary artery without angina pectoris; K21.9 Gastro-esophageal reflux disease without esophagitis; N40.0 Benign prostatic hyperplasia without lower urinary tract symptoms; Z86.718 Personal history of other venous thrombosis and embolism; Z85.89 Personal history of malignant neoplasm of other organs and systems; I25.2 Old myocardial infarction; Z92.21 Personal history of antineoplastic chemotherapy; Z92.3 Personal history of irradiation; Z79.01 Long term (current) use of anticoagulants; Z79.899 Other long term (current) drug therapy
CPT/HCPCS: 36415; 71045; 76775; 76937; 80048; 80053; 80061; 82565; 83735; 84443; 84484; 84520; 85025; 85027; 85730; 93005; 93306; 93308; 93454; 99284; A9270-GY; J0282; J1644; J2250; J3010; J3475

== ENCOUNTER 2023-04-25 09:55 | Observation (INO) ==
[2023-04-25 12:00] LABS: ABS Basophils 0.1 10^3/uL (0.0-0.1); ABS Monocytes 0.5 10^3/uL (0.0-1.1); ABS Neutrophils 6.8 10^3/uL (1.5-7.6); Eosinophil % 0.4 %; Hematocrit 41.8 % (38-53); Hemoglobin 13.9 g/dL (13.2-16.3); Lymphocyte % 12.3 %; Mean Corpuscular Hemoglobin 28.4 pg (27-33); Mean Corpuscular Hgb Conc 33.3 g/dL (31-36); Mean Corpuscular Volume 85.1 fL (80-97); Mean Platelet Volume 7.8 fL (7.5-11.2); Nucleated Red Blood Cells % 0.1 /100 WBC (0.0-0.4); Platelet Count 275 10^3/uL (150-450); Red Blood Count 4.91 10^6/uL (4.06-5.63); Red Cell Distribution Width 16.1 % (12-17); White Blood Count 8.3 10^3/uL (3.6-10.2)
[2023-04-25 12:07] LABS: Activated Partial Thrombo Time 45.8 seconds (26.0-38.0); INR 1.52 (0.88-1.18)
[2023-04-25 12:44] LABS: Albumin 3.9 g/dL (3.2-5.2); C Reactive Protein 60.53 mg/L (<8.01); Calcium 9.9 mg/dL (8.6-10.3); Creatinine, Serum 1.53 mg/dL (0.67-1.17); Globulin 3.9 g/dL (2-4); Potassium 4.2 mmol/L (3.5-5.0); Total Bilirubin 1.1 mg/dL (0.2-1.0); Total Protein 7.8 g/dL (6.4-8.9); eGFR CKD-EPI 46.5 (>60)
[2023-04-25] MEDS ORDERED: Iodixanol (CONTRAST) 320 MG/ML 100 ML SDV IV ONE ×2 (13:10→14:00)
[2023-04-25 13:26] LABS: High Sensitivity Troponin 1 Hr 5 pg/mL (<20)
[2023-04-25 13:35] LABS: Urine Bacteria Absent (Absent); Urine Red Blood Cell 1+(3-5/hpf) (Absent); Urine Squamous Epithelial Cell Present (Absent); Urine White Blood Cell Trace(0-5/hpf) (Absent)
[2023-04-25 13:51] LABS: Urine Appearance Clear; Urine Bilirubin Negative (Negative); Urine Blood Negative (Negative); Urine Color Yellow; Urine Glucose Negative (Negative); Urine Ketones Negative (Negative); Urine Nitrite Negative (Negative); Urine Protein 1+(30 mg/dL) (Negative); Urine Specific Gravity 1.015 (1.002-1.030); Urine Urobilinogen Positive (Negative)
[2023-04-25] MEDS ORDERED: Piperacillin/Tazobac 3.375 BAG 3.375 GM/100 ML BAG IV ONE ×2 (15:11→16:56)
[2023-04-25] MEDS ORDERED: hydrALAZINE 20 mg/ml 1 ML Vial IV IV SLOW PU PRN (19:33)
[2023-04-26] MEDS ORDERED: hydrALAZINE 20 mg/ml 1 ML Vial IV IV SLOW PU PRN (00:41)
[2023-04-26] MEDS ORDERED: ZOSYN 3.375 GM x ONE DOSE over 30 miuntes IV (01:15)
[2023-04-26 05:03] LABS: Albumin 3.1 g/dL (3.2-5.2); Calcium 8.9 mg/dL (8.6-10.3); Creatinine, Serum 1.66 mg/dL (0.67-1.17); Globulin 3.1 g/dL (2-4); Magnesium 1.7 mg/dL (1.9-2.7); Phosphorus 3.2 mg/dL (2.5-5.0); Potassium 4.3 mmol/L (3.5-5.0); Total Bilirubin 1.2 mg/dL (0.2-1.0); Total Protein 6.2 g/dL (6.4-8.9); eGFR CKD-EPI 42.2 (>60)
[2023-04-26 05:04] LABS: ABS Lymphocytes 0.9 10^3/uL (1.0-4.8); ABS Monocytes 0.5 10^3/uL (0.0-1.1); ABS Neutrophils 10.9 10^3/uL (1.5-7.6); Eosinophil % 0.1 %; Hematocrit 37.1 % (38-53); Hemoglobin 12.2 g/dL (13.2-16.3); Lymphocyte % 7.4 %; Mean Corpuscular Hemoglobin 28.1 pg (27-33); Mean Corpuscular Hgb Conc 32.7 g/dL (31-36); Mean Corpuscular Volume 85.7 fL (80-97); Mean Platelet Volume 7.8 fL (7.5-11.2); Platelet Count 226 10^3/uL (150-450); Red Blood Count 4.33 10^6/uL (4.06-5.63); Red Cell Distribution Width 15.9 % (12-17); White Blood Count 12.3 10^3/uL (3.6-10.2)
[2023-04-26] MEDS: Piperacillin/Tazobac 3.375 BAG 3.375 GM/100 ML BAG IV SCH ×3 (08:55→18:01)
[2023-04-26] MEDS ORDERED: Magnesium Sulfate IV 3 GM in NS 0.9% 100 ml BAG 100 ML IVPB ONE (09:29)
[2023-04-26] MEDS: CMCS: Nebivolol 2.5 mg TAB (NF) PO SCH (10:59)
[2023-04-27] MEDS: Piperacillin/Tazobac 3.375 BAG 3.375 GM/100 ML BAG IV SCH ×2 (01:14→10:53)
[2023-04-27 10:22] VITALS: BP 136/70
[2023-04-27] MEDS: CMCS: Nebivolol 2.5 mg TAB (NF) PO SCH (11:48)
[2023-04-27] MEDS ORDERED: Amoxicillin/Clavul 875/125 TAB (Augmentin 875 tab) PO SCH (21:00)
== END 2023-04-27 14:50 | disposition home or self-care (01) ==
LOC: ED 09:55 → INTOOBSV 18:06 → EDHOLD 18:06 → SUATTDRO 18:06 → MED 04-26 14:49
PROVIDERS: ADMIT Internal Medicine; ATTEND Internal Medicine

== ENCOUNTER 2023-12-09 10:21 | Observation (INO) ==
[~2023-12-09 10:21] MED LIST: Naloxone 0.4 mg VIAL 0.4 mg/ml 1 ml VIAL IV PRN; Ondansetron 4 mg VIAL 2 MG/ML 2 ml VIAL IV PRN
[2023-12-09] MEDS: Lactated Ringers 1000 ml BAG 1,000 ML IV SCH (11:12)
[2023-12-09] MEDS ORDERED: Rocuronium 50 mg VIAL 10 mg/ml 5 ml VIAL (50 mg) ONE ×2 (11:39→13:25)
[2023-12-09] MEDS ORDERED: Lidocaine 2% PF 5 ML VIAL ONE (11:39)
[2023-12-09] MEDS ORDERED: fentaNYL 100 mcg/2 ml 50 MCG/ML VIAL ONE ×2 (11:39→15:20)
[2023-12-09] MEDS ORDERED: Propofol 10 MG/ML 20 ML BTL ONE (11:39)
[2023-12-09] MEDS ORDERED: Dexamethasone IV 4 MG/ML VIAL 1 ml VIAL ONE (12:11)
[2023-12-09] MEDS ORDERED: Ondansetron 4 mg VIAL 2 MG/ML 2 ml VIAL ONE (12:11)
[2023-12-09] MEDS ORDERED: Lidocaine 1% w EPI 1:100,000 MDV 20 ML VIAL ONE (12:15)
[2023-12-09] MEDS ORDERED: Phenylephrine 40 mcg/mL 10mL (400mcg) SYRINGE ONE (13:07)
[2023-12-09 14:42] LABS: Rapid COVID-19 Molecular Undetected (Undetected)
[2023-12-09] MEDS: fentaNYL 100 mcg/2 ml 50 MCG/ML VIAL IV PRN (15:21)
[2023-12-09] MEDS: CMCS: Nebivolol 2.5 mg TAB (NF) PO ONE (16:31)
[2023-12-09] MEDS ORDERED: HYDROmorphone 1 MG/1 ML SYRINGE IV SLOW PU PRN (17:30)
[2023-12-09] MEDS: Dexamethasone IV 4 MG/ML VIAL 1 ml VIAL IV SLOW PU SCH (17:45)
[2023-12-09] MEDS: Enoxaparin 40 MG/0.4 ML SYR SUBCUT SCH (17:45)
[2023-12-09] MEDS: Buffered Lidocaine 1% SYRIN 1 ml INTRADERM ONE (19:52)
[2023-12-09] MEDS: Senna TAB 8.6 mg TAB PO SCH (22:05)
[2023-12-09] MEDS: Chlorhexidine MOUTHWASH 0.12% 15 ML UDC SWISH SPIT SCH (22:07)
[2023-12-09] MEDS: Pantoprazole VIAL 40 MG VIAL IV SCH (22:08)
[2023-12-10 05:03] LABS: ABS Lymphocytes 0.4 10^3/uL (1.0-4.8); ABS Monocytes 0.1 10^3/uL (0.0-1.1); ABS Neutrophils 5.5 10^3/uL (1.5-7.6); Hematocrit 38.6 % (38-53); Lymphocyte % 7.4 %; Mean Corpuscular Hemoglobin 29.2 pg (27-33); Mean Corpuscular Hgb Conc 33.6 g/dL (31-36); Mean Corpuscular Volume 86.7 fL (80-97); Mean Platelet Volume 8.2 fL (7.5-11.2); Platelet Count 126 10^3/uL (150-450); Red Blood Count 4.45 10^6/uL (4.06-5.63); Red Cell Distribution Width 14.9 % (12-17)
[2023-12-10 05:25] LABS: Albumin 3.8 g/dL (3.2-5.2); Albumin/Globulin Ratio 1.7 (1-3); Calcium 8.6 mg/dL (8.6-10.3); Creatinine, Serum 1.19 mg/dL (0.67-1.17); Globulin 2.3 g/dL (2-4); Potassium 4.7 mmol/L (3.5-5.0); Total Bilirubin 0.9 mg/dL (0.2-1.0); Total Protein 6.1 g/dL (6.4-8.9); eGFR CKD-EPI 62.5 (>60)
[2023-12-10] MEDS: Polyethylene Glycol 3350 17 GM PACKET PO SCH (09:13)
[2023-12-10] MEDS: CMCS: Nebivolol 2.5 mg TAB (NF) PO SCH (09:14)
[2023-12-10 10:46] VITALS: BP 129/67
== END 2023-12-10 10:51 | disposition home or self-care (01) ==
LOC: OR 10:21 → SSU 14:54 → INTOOBSV 14:54
PROVIDERS: ADMIT Otolaryngology; ATTEND Internal Medicine

== ENCOUNTER 2024-01-02 09:24 | Inpatient (IN) ==
[~2024-01-02 09:24] MED LIST changes: +Lidocaine 1% w EPI 1:100,000 MDV 20 ML VIAL ONE; +Metoclopramide 5 MG/ML VIAL (10 mg) IV PRN; +NS 0.45% 1000 ml BAG 1,000 ML IV SCH
[2024-01-02] MEDS: Scopolamine 1 mg/72hr PATCH TRANSDERM ONE (09:51)
[2024-01-02] MEDS ORDERED: Acetaminophen IV 1 GM/100ML 1,000 MG/100 ML BAG IV ONE (09:54)
[2024-01-02] MEDS ORDERED: Propofol 10 MG/ML 20 ML BTL ONE (10:00)
[2024-01-02] MEDS ORDERED: Lidocaine 2% PF 5 ML VIAL ONE (10:00)
[2024-01-02] MEDS ORDERED: Midazolam 2 mg/2 ml VIAL 1 mg/ml 2 ml VIAL (2 mg) ONE (10:00)
[2024-01-02] MEDS ORDERED: fentaNYL 100 mcg/2 ml 50 MCG/ML VIAL ONE ×3 (10:00→16:46)
[2024-01-02] MEDS ORDERED: Phenylephrine IV 10 MG/ML 1 ml VIAL ONE (10:00)
[2024-01-02] MEDS ORDERED: Rocuronium 50 mg VIAL 10 mg/ml 5 ml VIAL (50 mg) ONE (10:01)
[2024-01-02 10:03] LABS: Rapid COVID-19 Molecular Undetected (Undetected)
[2024-01-02] MEDS: Acetaminophen IV 1 GM/100ML 1,000 MG/100 ML BAG IV ONE (10:07)
[2024-01-02] MEDS: Buffered Lidocaine 1% SYRIN 1 ml INTRADERM ONE (10:08)
[2024-01-02] MEDS: Lactated Ringers 1000 ml BAG 1,000 ML IV SCH ×2 (10:09→22:22)
[2024-01-02] MEDS ORDERED: Succinylcholine 200 mg VIAL 20 mg/ml 10 ml VIAL (200 mg) ONE (12:47)
[2024-01-02] MEDS ORDERED: Dexamethasone IV 4 MG/ML VIAL 1 ml VIAL ONE (12:47)
[2024-01-02] MEDS ORDERED: Ondansetron 4 mg VIAL 2 MG/ML 2 ml VIAL ONE (12:47)
[2024-01-02] MEDS ORDERED: Bacitracin OINTMENT TUBE ONE (14:58)
[2024-01-02] MEDS: fentaNYL 100 mcg/2 ml 50 MCG/ML VIAL IV PRN (16:47)
[2024-01-02] MEDS: Chlorhexidine MOUTHWASH 0.12% 15 ML UDC SWISH SPIT SCH (21:23)
[2024-01-02] MEDS: HYDROmorphone 1 MG/1 ML SYRINGE IV SLOW PU PRN (22:27)
[2024-01-02] MEDS: Albuterol 2.5mg/3 ml (0.083%) NEB.SOLN INH ONE (23:25)
[2024-01-03 05:29] LABS: ABS Lymphocytes 0.5 10^3/uL (1.0-4.8); ABS Monocytes 0.2 10^3/uL (0.0-1.1); ABS Neutrophils 4.9 10^3/uL (1.5-7.6); Hematocrit 33.8 % (38-53); Hemoglobin 11.4 g/dL (13.2-16.3); Lymphocyte % 9.2 %; Mean Corpuscular Hemoglobin 29.3 pg (27-33); Mean Corpuscular Hgb Conc 33.8 g/dL (31-36); Mean Corpuscular Volume 86.6 fL (80-97); Mean Platelet Volume 7.9 fL (7.5-11.2); Platelet Count 172 10^3/uL (150-450); Red Cell Distribution Width 14.2 % (12-17); White Blood Count 5.7 10^3/uL (3.6-10.2)
[2024-01-03 05:45] LABS: Albumin 3.1 g/dL (3.2-5.2); Albumin/Globulin Ratio 1.5 (1-3); Calcium 8.3 mg/dL (8.6-10.3); Creatinine, Serum 1.26 mg/dL (0.67-1.17); Globulin 2.1 g/dL (2-4); Magnesium 1.7 mg/dL (1.9-2.7); Potassium 4.7 mmol/L (3.5-5.0); Total Bilirubin 0.6 mg/dL (0.2-1.0); Total Protein 5.2 g/dL (6.4-8.9); eGFR CKD-EPI 58.4 (>60)
[2024-01-03] MEDS: Nebivolol 2.5 mg TAB (NF) PO SCH (09:33)
[2024-01-03] MEDS: Magnesium Sulfate 2 gm BAG 2 GM/50 ML BAG IVPB ONE (11:35)
[2024-01-04] MEDS: Bacitracin OINTMENT TUBE TOPICAL SCH (10:12)
[2024-01-04 10:22] LABS: ABS Eosinophils 0.1 10^3/uL (0.0-0.5); ABS Lymphocytes 1.2 10^3/uL (1.0-4.8); ABS Monocytes 0.6 10^3/uL (0.0-1.1); ABS Neutrophils 5.7 10^3/uL (1.5-7.6); Eosinophil % 0.8 %; Hematocrit 35.4 % (38-53); Hemoglobin 11.8 g/dL (13.2-16.3); Mean Corpuscular Hemoglobin 29.3 pg (27-33); Mean Corpuscular Hgb Conc 33.2 g/dL (31-36); Mean Corpuscular Volume 88.4 fL (80-97); Mean Platelet Volume 7.7 fL (7.5-11.2); Platelet Count 191 10^3/uL (150-450); Red Blood Count 4.01 10^6/uL (4.06-5.63); Red Cell Distribution Width 14.9 % (12-17); White Blood Count 7.6 10^3/uL (3.6-10.2)
[2024-01-04 11:08] LABS: Calcium 8.7 mg/dL (8.6-10.3); Creatinine, Serum 1.38 mg/dL (0.67-1.17); Magnesium 1.8 mg/dL (1.9-2.7); Potassium 4.1 mmol/L (3.5-5.0); eGFR CKD-EPI 52.3 (>60)
[2024-01-04] MEDS: Magnesium Sulfate IV 1GM/100ML 1 GM/100 ML BAG IV ONE (12:01)
[2024-01-05 10:24] VITALS: BP 137/60
== END 2024-01-05 12:25 | disposition home or self-care (01) | DRG 141 ==
LOC: SSU → AA 09:24 → INTOOBSV 09:24 → SUATTDRO 15:39 → OBSVTOIN 15:39
PROVIDERS: ADMIT Otolaryngology; ATTEND Student in an Organized Health Care Education/Training Program

== ENCOUNTER 2024-01-06 13:56 | Observation (INO) ==
[2024-01-06 15:49] LABS: ABS Eosinophils 0.1 10^3/uL (0.0-0.5); ABS Lymphocytes 0.7 10^3/uL (1.0-4.8); ABS Monocytes 0.8 10^3/uL (0.0-1.1); ABS Neutrophils 9.7 10^3/uL (1.5-7.6); Eosinophil % 0.6 %; Hemoglobin 12.4 g/dL (13.2-16.3); Lymphocyte % 6.3 %; Mean Corpuscular Hemoglobin 29.2 pg (27-33); Mean Corpuscular Hgb Conc 33.4 g/dL (31-36); Mean Corpuscular Volume 87.5 fL (80-97); Mean Platelet Volume 8.4 fL (7.5-11.2); Platelet Count 164 10^3/uL (150-450); Red Blood Count 4.23 10^6/uL (4.06-5.63); Red Cell Distribution Width 14.6 % (12-17); White Blood Count 11.3 10^3/uL (3.6-10.2)
[2024-01-06 16:32] LABS: Albumin 3.5 g/dL (3.2-5.2); Albumin/Globulin Ratio 1.4 (1-3); Calcium 9.1 mg/dL (8.6-10.3); Creatinine, Serum 1.32 mg/dL (0.67-1.17); Globulin 2.5 g/dL (2-4); Magnesium 1.8 mg/dL (1.9-2.7); Potassium 4.2 mmol/L (3.5-5.0); Total Bilirubin 1.2 mg/dL (0.2-1.0); eGFR CKD-EPI 55.2 (>60)
[2024-01-06] MEDS: Lactated Ringers 1000 ml BAG 1,000 ML IV ONE (17:05)
[2024-01-06 17:13] LABS: High Sensitivity Troponin 1 Hr 20 pg/mL (<20)
[2024-01-06] MEDS: Iodixanol (CONTRAST) 320 MG/ML 100 ML SDV IV ONE (17:51)
[2024-01-06] MEDS: Magnesium Sulfate 2 gm BAG 2 GM/50 ML BAG IVPB ONE (21:52)
[2024-01-06 22:22] LABS: Urine Appearance Clear; Urine Bacteria Absent /HPF (Absent); Urine Bilirubin Negative (Negative); Urine Blood Negative (Negative); Urine Color Yellow; Urine Glucose Negative (Negative); Urine Ketones Negative (Negative); Urine Nitrite Negative (Negative); Urine Protein 1+ (>=30 mg/dL) (Negative); Urine Red Blood Cell Trace(0-2/hpf) /HPF (0-Trace); Urine Specific Gravity >1.050 (1.002-1.030); Urine Sperm Present /HPF (Absent); Urine Squamous Epithelial Cell Present /HPF (Absent); Urine Urobilinogen Negative (Negative); Urine White Blood Cell Absent /HPF (0-Trace)
[2024-01-06] MEDS ORDERED: Ondansetron 4 mg VIAL 2 MG/ML 2 ml VIAL IV PRN (23:00)
[2024-01-06] MEDS: Enoxaparin 40 MG/0.4 ML SYR SUBCUT SCH (23:43)
[2024-01-07] MEDS: HYDROcodone/ACETAMIN 5/325 mg TAB PO PRN (00:43)
[2024-01-07 07:29] LABS: Calcium 8.6 mg/dL (8.6-10.3); Creatinine, Serum 1.27 mg/dL (0.67-1.17); eGFR CKD-EPI 57.8 (>60)
[2024-01-07 07:35] LABS: ABS Eosinophils 0.2 10^3/uL (0.0-0.5); ABS Lymphocytes 0.9 10^3/uL (1.0-4.8); ABS Monocytes 0.6 10^3/uL (0.0-1.1); Eosinophil % 2.6 %; Hemoglobin 11.4 g/dL (13.2-16.3); Lymphocyte % 13.9 %; Mean Corpuscular Hemoglobin 29.3 pg (27-33); Mean Corpuscular Hgb Conc 33.6 g/dL (31-36); Mean Corpuscular Volume 87.3 fL (80-97); Mean Platelet Volume 8.4 fL (7.5-11.2); Platelet Count 149 10^3/uL (150-450); Red Blood Count 3.89 10^6/uL (4.06-5.63); Red Cell Distribution Width 14.4 % (12-17); White Blood Count 6.8 10^3/uL (3.6-10.2)
[2024-01-07] MEDS: CMCS:Nebivolol 2.5 mg TAB (NF) PO SCH (08:22)
[2024-01-07] MEDS: Chlorhexidine MOUTHWASH 0.12% 15 ML UDC SWISH SPIT SCH (08:22)
[2024-01-07] MEDS: hydrALAZINE 20 mg/ml 1 ML Vial IV IV SLOW PU ONE (08:23)
[2024-01-07] MEDS: Bacitracin OINTMENT TUBE TOPICAL SCH (08:28)
[2024-01-07 13:40] VITALS: BP 155/68
== END 2024-01-07 17:30 | disposition home health service (06) ==
LOC: ED 13:56 → EDHOLD 23:11 → INTOOBSV 23:11 → MED 23:51
PROVIDERS: ADMIT Student in an Organized Health Care Education/Training Program; ATTEND Internal Medicine

== ENCOUNTER 2024-04-17 14:02 | Inpatient (IN) ==
[2024-04-17 15:13] LABS: ABS Eosinophils 0.1 10^3/uL (0.0-0.5); ABS Lymphocytes 1.3 10^3/uL (1.0-4.8); ABS Monocytes 0.5 10^3/uL (0.0-1.1); ABS Neutrophils 4.3 10^3/uL (1.5-7.6); Hematocrit 34.5 % (38-53); Hemoglobin 11.3 g/dL (13.2-16.3); Lymphocyte % 20.9 %; Mean Corpuscular Hemoglobin 28.5 pg (27-33); Mean Corpuscular Hgb Conc 32.8 g/dL (31-36); Mean Corpuscular Volume 86.9 fL (80-97); Mean Platelet Volume 7.9 fL (7.5-11.2); Platelet Count 189 10^3/uL (150-450); Red Blood Count 3.96 10^6/uL (4.06-5.63); Red Cell Distribution Width 14.4 % (12-17); White Blood Count 6.2 10^3/uL (3.6-10.2)
[2024-04-17 15:38] LABS: High Sens Troponin Baseline 23 pg/mL (<20)
[2024-04-17 16:04] LABS: ALT 9 U/L (7-52); AST 13 U/L (13-39); Albumin 3.6 g/dL (3.2-5.2); Albumin/Globulin Ratio 1.4 (1-3); Alcohol, S < 13 mg/dL (<13); Alkaline Phosphatase 75 U/L (35-149); Anion Gap 6 mmol/L (2-16); Blood Urea Nitrogen 33 mg/dL (6-24); CO2 Carbon Dioxide 31 mmol/L (22-32); Calcium 9.7 mg/dL (8.6-10.3); Chloride 105 mmol/L (101-111); Creatinine, Serum 1.55 mg/dL (0.67-1.17); Globulin 2.6 g/dL (2-4); Glucose 112 mg/dL (70-100); Potassium 3.7 mmol/L (3.5-5.0); Sodium 142 mmol/L (135-145); Total Bilirubin 0.5 mg/dL (0.2-1.0); Total Protein 6.2 g/dL (6.4-8.9); eGFR CKD-EPI 45.5 (>60)
[2024-04-17 16:52] LABS: High Sensitivity Troponin 1 Hr 22 pg/mL (<20)
[2024-04-17 17:21] LABS: Urine Appearance Turbid; Urine Bilirubin Negative (Negative); Urine Blood Negative (Negative); Urine Color Yellow; Urine Glucose Negative (Negative); Urine Ketones Trace (Negative); Urine Nitrite Negative (Negative); Urine Protein Trace (Negative); Urine Specific Gravity 1.031 (1.002-1.030); Urine Urobilinogen Negative (Negative); Urine pH 5.5 (5.0-8.0)
[2024-04-17 17:24] LABS: Urine Amorphous Crystals Present /HPF (Absent); Urine Bacteria 1+ /HPF (Absent); Urine Red Blood Cell Trace(0-2/hpf) /HPF (0-Trace); Urine Squamous Epithelial Cell Present /HPF (Absent); Urine Transitional Epithelial Present /HPF (Absent); Urine White Blood Cell 2+(11-20/hpf) /HPF (0-Trace)
[2024-04-17] MEDS: cefTRIAXone 1 gm/50 mL D5W 1 GM/50 ML BAG IV ONE (17:56)
[2024-04-17] MEDS: Iodixanol (CONTRAST) 320 MG/ML 100 ML SDV IV ONE (20:50)
[2024-04-17] MEDS: fentaNYL Patch Check Q Shift NOTE FOLLOW UP SCH (22:24)
[2024-04-17] MEDS: NS 0.9% 1000 ml BAG 1,000 ML IV SCH (22:42)
[2024-04-17] MEDS: HYDROcodone/ACET. 7.5/325 LIQ 15 ML UDC PO PRN (22:57)
[2024-04-18] MEDS: Vitamin THERAPEUTIC TAB PO SCH (08:12)
[2024-04-18] MEDS: CMCS: Nebivolol 2.5 mg TAB (NF) PO SCH (08:14)
[2024-04-18 15:08] LABS: ABS Eosinophils 0.1 10^3/uL (0.0-0.5); ABS Lymphocytes 1.3 10^3/uL (1.0-4.8); ABS Monocytes 0.5 10^3/uL (0.0-1.1); ABS Neutrophils 4.5 10^3/uL (1.5-7.6); Eosinophil % 1.2 %; Hematocrit 36.1 % (38-53); Hemoglobin 11.9 g/dL (13.2-16.3); Lymphocyte % 20.8 %; Mean Corpuscular Hemoglobin 28.5 pg (27-33); Mean Corpuscular Hgb Conc 33.1 g/dL (31-36); Mean Corpuscular Volume 86.2 fL (80-97); Mean Platelet Volume 7.9 fL (7.5-11.2); Nucleated Red Blood Cells % 0.1 %/100WBC (0.0-0.8); Platelet Count 179 10^3/uL (150-450); Red Blood Count 4.19 10^6/uL (4.06-5.63); Red Cell Distribution Width 14.2 % (12-17); White Blood Count 6.4 10^3/uL (3.6-10.2)
[2024-04-18] MEDS: Thiamine 100 MG/ML 2 ml VIAL (200 mg) IV ONE (16:22)
[2024-04-18] MEDS ORDERED: cefTRIAXone 1 gm/50 mL D5W 1 GM/50 ML BAG IV SCH (18:00)
[2024-04-18 18:03] LABS: Calcium 9.5 mg/dL (8.6-10.3); Creatinine, Serum 1.12 mg/dL (0.67-1.17); Magnesium 1.7 mg/dL (1.9-2.7); Potassium 4.1 mmol/L (3.5-5.0); eGFR CKD-EPI 67.2 (>60)
[2024-04-18] MEDS: Thiamine IV 100 MG in NS 0.9% 50 ML Q24H IV ONE (18:13)
[2024-04-18] MEDS: HYDROcodone/ACET. 7.5/325 LIQ 15 ML UDC PO SCH ×2 (18:35→22:09)
[2024-04-18] MEDS: cefTRIAXone 1 gm/50 mL D5W 1 GM/50 ML BAG IV SCH (22:16)
[2024-04-19] MEDS: Magic MouthWash1-BEN/MAAL/LIDO 180 ML BTL SWISH SPIT SCH (03:57)
[2024-04-19] MEDS: Enoxaparin 40 MG/0.4 ML SYR SUBCUT SCH (04:04)
[2024-04-19 08:21] LABS: ABS Eosinophils 0.1 10^3/uL (0.0-0.5); ABS Lymphocytes 1.3 10^3/uL (1.0-4.8); ABS Monocytes 0.5 10^3/uL (0.0-1.1); ABS Neutrophils 3.9 10^3/uL (1.5-7.6); Hematocrit 32.8 % (38-53); Hemoglobin 11.1 g/dL (13.2-16.3); Lymphocyte % 21.9 %; Mean Corpuscular Hemoglobin 28.9 pg (27-33); Mean Corpuscular Hgb Conc 33.8 g/dL (31-36); Mean Corpuscular Volume 85.6 fL (80-97); Platelet Count 153 10^3/uL (150-450); Red Blood Count 3.84 10^6/uL (4.06-5.63); White Blood Count 5.9 10^3/uL (3.6-10.2)
[2024-04-19] MEDS: HYDROcodone/ACETAMIN 5/325 mg TAB PO SCH (08:42)
[2024-04-19 08:57] LABS: Calcium 8.8 mg/dL (8.6-10.3); Creatinine, Serum 1.07 mg/dL (0.67-1.17); Magnesium 1.6 mg/dL (1.9-2.7); Phosphorus 2.7 mg/dL (2.5-5.0); Potassium 3.7 mmol/L (3.5-5.0)
[2024-04-19] MEDS: HYDROcodone/ACET. 7.5/325 LIQ 15 ML UDC PO PRN (13:17)
[2024-04-19] MEDS: Magnesium Sulfate 2 gm BAG 2 GM/50 ML BAG IVPB ONE (23:14)
[2024-04-20 08:22] LABS: ABS Eosinophils 0.1 10^3/uL (0.0-0.5); ABS Monocytes 0.6 10^3/uL (0.0-1.1); ABS Neutrophils 8.7 10^3/uL (1.5-7.6); Eosinophil % 0.8 %; Hematocrit 31.4 % (38-53); Hemoglobin 10.8 g/dL (13.2-16.3); Lymphocyte % 9.9 %; Mean Corpuscular Hemoglobin 29.4 pg (27-33); Mean Corpuscular Hgb Conc 34.3 g/dL (31-36); Mean Corpuscular Volume 85.7 fL (80-97); Mean Platelet Volume 8.4 fL (7.5-11.2); Platelet Count 139 10^3/uL (150-450); Red Blood Count 3.66 10^6/uL (4.06-5.63); Red Cell Distribution Width 14.1 % (12-17); White Blood Count 10.5 10^3/uL (3.6-10.2)
[2024-04-20 09:23] LABS: Calcium 8.9 mg/dL (8.6-10.3); Creatinine, Serum 1.07 mg/dL (0.67-1.17)
[2024-04-20] MEDS: fentaNYL PATCH 12 MCG/HR 1 PATCH TRANSDERM SCH (10:08)
[2024-04-20] MEDS: NS 0.9% 1000 ml BAG 1,000 ML IV SCH (14:21)
[2024-04-21 06:36] LABS: ABS Eosinophils 0.1 10^3/uL (0.0-0.5); ABS Monocytes 0.5 10^3/uL (0.0-1.1); ABS Neutrophils 5.3 10^3/uL (1.5-7.6); Eosinophil % 1.2 %; Hemoglobin 10.6 g/dL (13.2-16.3); Lymphocyte % 14.1 %; Mean Corpuscular Hemoglobin 29.3 pg (27-33); Mean Corpuscular Volume 86.1 fL (80-97); Mean Platelet Volume 8.8 fL (7.5-11.2); Nucleated Red Blood Cells % 0.1 %/100WBC (0.0-0.8); Platelet Count 125 10^3/uL (150-450); Red Cell Distribution Width 14.3 % (12-17)
[2024-04-21 07:00] LABS: Calcium 8.7 mg/dL (8.6-10.3); Creatinine, Serum 1.09 mg/dL (0.67-1.17); Potassium 3.9 mmol/L (3.5-5.0); eGFR CKD-EPI 69.5 (>60)
[2024-04-21] MEDS: Morphine ORAL CONCENTRATE 5 MG/0.25 ML ORAL.SYRIN PO PRN (14:17)
[2024-04-21] MEDS: Acetaminophen IV 1 GM/100ML 1,000 MG/100 ML BAG IV ONE (21:49)
[2024-04-22] MEDS ORDERED: Morphine ORAL CONCENTRATE 5 MG/0.25 ML ORAL.SYRIN PO PRN (09:32)
[2024-04-22] MEDS: Morphine ORAL CONCENTRATE 5 MG/0.25 ML ORAL.SYRIN SL ONE (10:45)
[2024-04-22] MEDS: Morphine ORAL CONCENTRATE 5 MG/0.25 ML ORAL.SYRIN SL PRN (18:34)
[2024-04-23] MEDS: Acetaminophen IV 1 GM/100ML 1,000 MG/100 ML BAG IV ONE (03:15)
[2024-04-24 08:58] LABS: ABS Eosinophils 0.1 10^3/uL (0.0-0.5); ABS Lymphocytes 0.9 10^3/uL (1.0-4.8); ABS Monocytes 0.5 10^3/uL (0.0-1.1); ABS Neutrophils 3.9 10^3/uL (1.5-7.6); Eosinophil % 1.5 %; Hematocrit 32.4 % (38-53); Hemoglobin 10.9 g/dL (13.2-16.3); Mean Corpuscular Hemoglobin 28.8 pg (27-33); Mean Corpuscular Hgb Conc 33.7 g/dL (31-36); Mean Corpuscular Volume 85.6 fL (80-97); Platelet Count 169 10^3/uL (150-450); Red Blood Count 3.78 10^6/uL (4.06-5.63); Red Cell Distribution Width 14.5 % (12-17); White Blood Count 5.4 10^3/uL (3.6-10.2)
[2024-04-24 09:42] VITALS: BP 165/73
[2024-04-24 09:45] LABS: Albumin 2.8 g/dL (3.2-5.2); Albumin/Globulin Ratio 1.2 (1-3); Calcium 8.8 mg/dL (8.6-10.3); Creatinine, Serum 0.93 mg/dL (0.67-1.17); Direct Bilirubin 0.1 mg/dL (0.03-0.18); Globulin 2.4 g/dL (2-4); Indirect Bilirubin 0.3 mg/dL (0.3-1.0); Magnesium 1.7 mg/dL (1.9-2.7); Phosphorus 2.6 mg/dL (2.5-5.0); Potassium 4.1 mmol/L (3.5-5.0); Total Bilirubin 0.4 mg/dL (0.2-1.0); Total Protein 5.2 g/dL (6.4-8.9)
[2024-04-24] MEDS: Scopolamine 1 mg/72hr PATCH TRANSDERM SCH (12:04)
[2024-04-24] MEDS: Morphine ORAL CONCENTRATE 5 MG/0.25 ML ORAL.SYRIN SL PRN (13:31)
[2024-04-25] MEDS: Atropine 1% (ORAL/SL) 15 ML BTL SL PRN (02:27)
[2024-04-25] MEDS: fentaNYL PATCH 25 MCG/HR 1 PATCH TRANSDERM SCH (10:46)
[2024-04-25] MEDS: Morphine 2 MG/ML SYRINGE IV PRN (15:26)
[2024-04-26] MEDS ORDERED: LORazepam 2 MG/ML 1 mL Syringe IV PRN (10:44)
[2024-04-26] MEDS ORDERED: Lorazepam PYXIS KEY PRN (10:52)
[2024-04-26] MEDS: LORazepam 2 mg VIAL 1 ml IV PUSH PRN (10:57)
[2024-04-29] MEDS: Acetaminophen IV 1 GM/100ML 1,000 MG/100 ML BAG IV ONE (17:28)
== END 2024-05-03 01:45 | DRG 146 ==
LOC: ED 14:02 → EDHOLD 14:02 → MEDTELE 04-18 12:53 → SUATTDRO 04-20 13:01
PROVIDERS: ADMIT Hospitalist; ATTEND Internal Medicine